=== PATIENT | male | born 1950 | race Caucasian/White ===

== ENCOUNTER 2016-11-17 07:38 | Day surgery (SDC) | payer OTHER, MEDICARE ==
[2016-11-16 08:24] VITALS: BMI 27.8
[~2016-11-17 07:38] MED LIST: LACTATED RINGERS 1,000 ML IV SCH; LIDOCAINE 1% 20 ML VIAL (10MG/ML) FOR IV START INTRADERMA PRN
[2016-11-17 07:47] VITALS: TEMP 98
[2016-11-17] MEDS ORDERED: LACTATED RINGERS 1,000 ML IV ONE (07:56)
[2016-11-17] MEDS ORDERED: PROPOFOL 10 MG/ML 20 ML VIAL IV ONE (08:49)
--- NOTE | 2016-11-17 09:19 | P.PCN ---
Date of Procedure: 11/17/16 Preoperative Diagnosis: Postoperative Diagnosis: Procedure(s) Performed: Procedure: Colonoscopy and biopsy. Preoperative diagnosis: History of polyps and history of ulcerative colitis. Postoperative diagnosis: 1. Numerous pseudopolyps in the distal sigmoid but no evidence of active colitis in that segment. 2. Mild diverticulosis with no evidence of acute diverticulitis or strictures. 3. No additional polyps or cancer seen. Preparation: HalfLytely prep. Sedation: Was provided by anesthesia. Brief clinical history: The patient is a 66-year-old male who has history of colitis since age 26. He has been on Lialda 1.2 grams twice a day. He is not having any diarrhea, abdominal pain or bleeding. His last colonoscopy was in . Procedure: With the patient on his left lateral decubitus position and after informed consent and adequate sedation, the perianal area was inspected and it did not show any fissures or fistulas. There were no masses felt on digital rectal examination. The Olympus CFQ 160L video colonoscope was then inserted in the rectum in the usual fashion and advanced to the cecum. There was mild diverticulosis in the sigmoid and occasional diverticular orifice around the hepatic flexure with no evidence of acute diverticulitis or strictures. Proximal to 40 cm from the anal canal, the mucosa appeared healthy, with no edema, erythema, friability, ulceration, exudation or spontaneous bleeding. No polyps were seen in the cecum where he had previously been noted to have a benign-appearing polyp. Between 40 cm and the rectosigmoid junction the mucosa appeared normal except that there were numerous small pseudopolyps. The rectum did not have any pseudopolyps and did not show any obvious abnormalities. I obtained multiple biopsies in the sigmoid, then the endoscope was retroflexed in the rectum before it was withdrawn. The patient tolerated the procedure well Plan: The patient was reassured. Will await biopsy results and continue with Lialda. Because of the long duration of his colitis, since he was 26 years old , I am recommending surveillance colonoscopy in 2 years. He will follow up with you as planned and I would be happy to see in the office if he has any problems. Implants: Indications for Procedure: Operative Findings: Description of Procedure:
[2016-11-17 09:34] VITALS: BP 137/86; PULSE 49; RESP 18
== END 2016-11-17 10:26 | disposition home or self-care (01) ==
LOC: ORWHC2ENDO 07:38
DX: K52.9 Noninfective gastroenteritis and colitis, unspecified (principal); Z86.010 Personal history of colon polyps; Z87.19 Personal history of other diseases of the digestive system; I25.10 Atherosclerotic heart disease of native coronary artery without angina pectoris; I10 Essential (primary) hypertension; Z95.5 Presence of coronary angioplasty implant and graft; G47.33 Obstructive sleep apnea (adult) (pediatric); Z99.89 Dependence on other enabling machines and devices; Z87.891 Personal history of nicotine dependence; Z79.82 Long term (current) use of aspirin; Z79.899 Other long term (current) drug therapy; Z88.1 Allergy status to other antibiotic agents; Z88.5 Allergy status to narcotic agent; Z88.2 Allergy status to sulfonamides
CPT/HCPCS: 88305; 45380; J2704

== ENCOUNTER 2018-11-27 23:52 | Observation (INO) | payer MEDICARE ==
[2018-11-28] MEDS ORDERED: ASPIRIN 81 MG PO STA (00:08)
--- NOTE | 2018-11-28 00:35 | ED ---
General Adult HPI - General Source: patient, RN notes reviewed, old records reviewed Mode of arrival: ambulatory Limitations: no limitations <Edgar Mcdonnell - Last Filed: 11/28/18 02:47> <Imelda Singh - Last Filed: 11/29/18 06:03> - General Chief complaint: Chest Pain Stated complaint: Chest Pain Time Seen by Provider: 11/28/18 00:08 - History of Present Illness Initial comments: 68-year-old male patient presents to ED for chief complaint of chest pain. Patient does have a history of prior [place] with stent placement. Patient reports that approximately 8 PM he had a transient episode of substernal burning and pressure. Patient reports that that approximately 30 minutes prior to arrival he had a episode of substernal burning chest pain which woke him up out of sleep. This prompted him to come to ER. Patient has any sustained chest pain. Patient reports that the pain only lasted approximate 5 seconds. Is currently asymptomatic right now. Denies any other complaints at this time. Denies any a ssociated diaphoresis nausea vomiting or diarrhea. Systemic: Pt denies fatigue, fever/chills, rash. Pt denies weakness, night sweats, weight loss. Neuro: Pt denies headache, visual disturbances, syncope or pre-syncope. HEENT: Pt denies ocular discharge or irritation, otalgia, rhinorrhea, pharyngit is or notable lymphadenopathy. Cardiopulmonary: Pt denies SOB, heart palpitations, dyspnea on exertion. Abdominal/GI: Pt denies abdominal pain, n/v/d. : Pt denies dysuria, burning w/ urination, frequency/urgency. Denies new onset urinary or bowel incontinence. MSK: Pt denies myalgia, loss of strength or function in extremities. Neuro: Pt denies new onset weakness, paresthesias. (Edgar Mcdonnell) - Related Data Home Medications Medication Instructions Recorded Confirmed Aspirin 162 mg PO DAILY 08/03/14 11/28/18 Lisinopril [Zestril] 20 mg PO QAM 08/03/14 11/28/18 Mesalamine [Lialda] 2.4 gm PO QAM 08/03/14 11/28/18 Pravastatin Sodium [Pravachol] 20 mg PO QAM 08/03/14 11/28/18 Cholecalciferol [Vitamin D3] 1,000 unit PO DAILY 11/16/16 11/28/18 Allergies Allergy/AdvReac Type Severity Reaction Status Date / Time Sulfa (Sulfonamide Allergy Unknown Rash/Hives Verified 11/28/18 07:49 Antibiotics) doxycycline Allergy Unknown Verified 11/28/18 07:49 hydrocodone [From [facility]] Allergy Hallucinati Verified 11/28/18 07:49 ons Review of Systems ROS Other: All systems not noted in ROS Statement are negative. <Edgar Mcdonnell - Last Filed: 11/28/18 02:47> ROS Other: All systems not noted in ROS Statement are negative. <Imelda Singh - Last Filed: 11/29/18 06:03> ROS Statement: Those systems with pertinent positive or pertinent negative responses have been documented in the HPI. Past Medical History Past Medical History: Hyperlipidemia, Hypertension, Myocardial Infarction ([place]), Sleep Apnea/CPAP/BIPAP Additional Past Medical History / Comment(s): DOES NOT USE HIS C-PAP, ULCERATIVE COLITIS. Last Myocardial Infarction Date:: 02/08/2007 History of Any Multi-Drug Resistant Organisms: None Reported Past Surgical History: Cardiac Ablation, Heart Catheterization With Stent, Orthopedic Surgery Additional Past Surgical History / Comment(s): REMOVAL BONES SPURS/LEFT SHOULD ER. rt shoulder rotator cuff Past Anesthesia/Blood Transfusion Reactions: Previous Problems w/ Anesthesia, Motion Sickness Additional Past Anesthesia/Blood Transfusion Reaction / Comment(s): PROBLEMS WITH BP DROPPING WITH ANESTHESIA. ACCORDING TO RECOVERY ROOM STAFF, HE TRIED TO GET OFF CART AND PULL OUT IV. Date of Last Stent Placement:: 02/09/2007 Past Psychological History: No Psychological Hx Reported Smoking Status: Never smoker Past Alcohol Use History: None Reported Past Drug Use History: None Reported - Past Family History Mother Family Medical History: No Reported History <Edgar Mcdonnell - Last Filed: 11/28/18 02:47> General Exam Limitations: no limitations <Edgar Mcdonnell - Last Filed: 11/28/18 02:47> - General Exam Comments Initial Comments: Constitutional: NAD, AOX3, Pt has pleasant affect. HEENT: NC/AT, trachea midline, neck supple, no lymphadenopathy. Posterior pharynx non erythematous, without exudates. External ears appear normal, without discharge. Mucous membranes moist. Eyes PERRLA, EOM intact. There is no scleral icterus. No pallor noted. Cardiopulmonary: RRR, no murmurs, rubs or gallops, no JVD noted. Lungs CTAB in anterior and posterior ma. No peripheral edema. Abdominal exam: Abdomen soft and non-distended. Abdomen non-tender to palpation in all 4 quadrants. Bowel sounds active in LLQ. No hepatosplenomegaly. No ecchymosis Neuro: CN II-XII grossly intact. No nuchal rigidity. No raccon eyes, no allison sign, no hemotympanum. No cervical spinal tenderness. MSK: No posterior calf tenderness bilaterally, homans sign negative bilaterally. Posterior tibialis and radial pulse +2 bilaterally. Sensation intact in upper and lower extremities. Full active ROM in upper and lower extremities, 5/5 stregnth. (Edgar Mcdonnell) Course Vital Signs 11/27/18 11/28/18 11/28/18 23:57 00:02 00:30 Temperature 98.0 F Pulse Rate 60 61 Pulse Rate [ 54 L Pulse Oximetery ] Respiratory 16 Rate Blood Pressure 148/82 139/85 O2 Sat by Pulse 98 Oximetry 11/28/18 11/28/18 11/28/18 01:00 01:30 02:00 Temperature Pulse Rate 52 L 50 L 48 L Pulse Rate [ Pulse Oximetery ] Respiratory Rate Blood Pressure 137/88 133/85 125/73 O2 Sat by Pulse Oximetry 11/28/18 11/28/18 11/28/18 02:30 03:00 03:30 Temperature Pulse Rate 50 L 52 L 48 L Pulse Rate [ Pulse Oximetery ] Respiratory Rate Blood Pressure 122/77 119/74 114/74 O2 Sat by Pulse Oximetry Medical Decision Making - Lab Data Result diagrams: 11/28/18 00:45 11/28/18 00:45 - EKG Data -: EKG Interpreted by Me (and Dr. Singh) <Edgar Mcdonnell - Last Filed: 11/28/18 02:47> - Lab Data Result diagrams: 11/28/18 05:54 11/28/18 05:54 <Imelda Singh - Last Filed: 11/29/18 06:03> - Medical Decision Making 68-year-old male patient presents to ED for chief complaint of chest pain. P max does have a history of prior [place] with stent placement. Patient reports that approximately 8 PM he had a transient episode of substernal burning and pressure. Patient reports that that approximately 30 minutes prior to arrival he had a episode of substernal burning chest pain which woke him up out of sleep. This prompted him to come to ER. Patient has any sustained chest pain. Patient reports that the pain only lasted approximate 5 seconds. Is currently asymptomatic right now. Denies any other complaints at this time. Denies any associated diaphoresis nausea vomiting or diarrhea. Patient also in stable, afebrile. Physical exam does not display acute pathology. Laboratory inve stigations revealed nonpassive CBC CMP. Coagulations studies within normal limits. D-dimer negative. Troponin negative. BNP 27. Chest x-ray revealed no acute process. EKG not concerning for acute pathology. Pt continues to remain asymptomatic. Patient leaving for serial troponins and cardiology consultation. Case discussed with Dr. Singh. (Edgar Mcdonnell) Presents on evaluated the patient agreeable with plan for admission for cardiac evaluation. Patient care was discussed with Dr. Bruno who agrees with plan. (Imelda Singh) - Lab Data Lab Results 11/28/18 11/28/18 11/28/18 Range/Units 00:45 00:45 00:45 WBC 5.9 (3.8-10.6) k/uL RBC 4.98 (4.30-5.90) m/uL Hgb 15.5 (13.0-17.5) gm/dL Hct 45.8 (39.0-53.0) % MCV 92.0 (80.0-100.0) fL MCH 31.2 (25.0-35.0) pg MCHC 33.8 (31.0-37.0) g/dL RDW 12.9 (11.5-15.5) % Plt Count 184 (150-450) k/uL Neutrophils % 58 % Lymphocytes % 27 % Monocytes % 9 % Eosinophils % 3 % Basophils % 1 % Neutrophils # 3.4 (1.3-7.7) k/uL Lymphocytes # 1.6 (1.0-4.8) k/uL Monocytes # 0.5 (0-1.0) k/uL Eosinophils # 0.2 (0-0.7) k/uL Basophils # 0.1 (0-0.2) k/uL PT 9.5 (9.0-12.0) sec INR 0.9 (<1.2) APTT 18.6 L (22.0-30.0) sec D-Dimer 0.30 (<0.60) mg/L FEU Sodium 140 (137-145) mmol/L Potassium 4.2 (3.5-5.1) mmol/L Chloride 107 (98-107) mmol/L Carbon Dioxide 20 L (22-30) mmol/L Anion Gap 13 mmol/L BUN 28 H (9-20) mg/dL Creatinine 1.11 (0.66-1.25) mg/dL Est GFR (CKD-EPI)AfAm 79 (>60 ml/min/1.73 sqM) Est GFR (CKD-EPI)NonAf 69 (>60 ml/min/1.73 sqM) Glucose 114 H (74-99) mg/dL Calcium 9.4 (8.4-10.2) mg/dL Magnesium 2.1 (1.6-2.3) mg/dL Total Bilirubin 0.6 (0.2-1.3) mg/dL AST 20 (17-59) U/L ALT 22 (21-72) U/L Alkaline Phosphatase 78 (38-126) U/L Troponin I (0.000-0.034) ng/mL NT-Pro-B Natriuret Pep pg/mL Total Protein 7.2 (6.3-8.2) g/dL Albumin 4.6 (3.5-5.0) g/dL 11/28/18 11/28/18 Range/Units 00:45 00:45 WBC (3.8-10.6) k/uL RBC (4.30-5.90) m/uL Hgb (13.0-17.5) gm/dL Hct (39.0-53.0) % MCV (80.0-100.0) fL MCH (25.0-35.0) pg MCHC (31.0-37.0) g/dL RDW (11.5-15.5) % Plt Count (150-450) k/uL Neutrophils % % Lymphocytes % % Monocytes % % Eosinophils % % Basophils % % Neutrophils # (1.3-7.7) k/uL Lymphocytes # (1.0-4.8) k/uL Monocytes # (0-1.0) k/uL Eosinophils # (0-0.7) k/uL Basophils # (0-0.2) k/uL PT (9.0-12.0) sec INR (<1.2) APTT (22.0-30.0) sec D-Dimer (<0.60) mg/L FEU Sodium (137-145) mmol/L Potassium (3.5-5.1) mmol/L Chloride (98-107) mmol/L Carbon Dioxide (22-30) mmol/L Anion Gap mmol/L BUN (9-20) mg/dL Creatinine (0.66-1.25) mg/dL Est GFR (CKD-EPI)AfAm (>60 ml/min/1.73 sqM) Est GFR (CKD-EPI)NonAf (>60 ml/min/1.73 sqM) Glucose (74-99) mg/dL Calcium (8.4-10.2) mg/dL Magnesium (1.6-2.3) mg/dL Total Bilirubin (0.2-1.3) mg/dL AST (17-59) U/L ALT (21-72) U/L Alkaline Phosphatase (38-126) U/L Troponin I <0.012 (0.000-0.034) ng/mL NT-Pro-B Natriuret Pep 27 pg/mL Total Protein (6.3-8.2) g/dL Albumin (3.5-5.0) g/dL - EKG Data EKG Comments: Ventricular rate 59, LA interval 146, QRS 94, QT/QTC 406/41. Sinus bradycardia, left axis deviation, incomplete right bundle-branch block. Abnormal EKG. (Edgar Mcdonnell) Disposition Is patient prescribed a controlled substance at d/c from ED?: No <Edgar Mcdonnell - Last Filed: 11/28/18 02:47> <Imelda Singh - Last Filed: 11/29/18 06:03> Clinical Impression: Chest pain Disposition: ADMITTED IP TO THIS [facility] Condition: Serious
[2018-11-28 01:08] LABS: Basophils # (A) 0.1 k/uL (0-0.2); Basophils % (A) 1 %; Eosinophils # (A) 0.2 k/uL (0-0.7); Eosinophils % (A) 3 %; HCT 45.8 % (39.0-53.0); HGB 15.5 gm/dL (13.0-17.5); Lymphocytes # (A) 1.6 k/uL (1.0-4.8); Lymphocytes % (A) 27 %; MCH 31.2 pg (25.0-35.0); MCHC 33.8 g/dL (31.0-37.0); Mean Platelet Volume 7.4; Monocytes # (A) 0.5 k/uL (0-1.0); Monocytes % (A) 9 %; Neutrophils # (A) 3.4 k/uL (1.3-7.7); Neutrophils % (A) 58 %; Platelet Count 184 k/uL (150-450); RBC 4.98 m/uL (4.30-5.90); RDW 12.9 % (11.5-15.5); WBC 5.9 k/uL (3.8-10.6)
[2018-11-28 01:24] LABS: Albumin 4.6 g/dL (3.5-5.0); Calcium 9.4 mg/dL (8.4-10.2); Magnesium 2.1 mg/dL (1.6-2.3); Potassium 4.2 mmol/L (3.5-5.1); Total Bilirubin 0.6 mg/dL (0.2-1.3); Total Protein 7.2 g/dL (6.3-8.2)
[2018-11-28 01:27] LABS: D-Dimer 0.3 mg/L FEU (<0.60); INR 0.9 (<1.2); Prothrombin Time 9.5 sec (9.0-12.0)
[2018-11-28 01:44] LABS: Partial Thromboplastin Time 18.6 sec (22.0-30.0)
--- NOTE | 2018-11-28 02:13 | XR ---
INDICATION: Chest pain COMPARISON: None FINDINGS: PA and lateral views of the chest are submitted for interpretation. There is no airspace consolidation, pleural effusion, or pneumothorax. Heart size and pulmonary vascularity are normal. There are degenerative changes in the thoracic spine without evidence of acute osseous abnormality. IMPRESSION: No acute cardiopulmonary disease.
[2018-11-28] MEDS ORDERED: NITROGLYCERIN SL TABS 0.4 MG TAB SUBLINGUAL PRN ×2 (02:44→14:03)
[2018-11-28] MEDS ORDERED: PRAVASTATIN SODIUM 20 MG TAB PO SCH (09:00)
[2018-11-28 09:11] VITALS: TEMP 97.7
[2018-11-28 09:49] LABS: Basophils % (A) 1 %; Eosinophils # (A) 0.2 k/uL (0-0.7); Eosinophils % (A) 3 %; HCT 44.6 % (39.0-53.0); HGB 14.5 gm/dL (13.0-17.5); Lymphocytes # (A) 1.6 k/uL (1.0-4.8); Lymphocytes % (A) 32 %; MCH 30.5 pg (25.0-35.0); MCHC 32.5 g/dL (31.0-37.0); MCV 93.9 fL (80.0-100.0); Mean Platelet Volume 7.6; Monocytes # (A) 0.4 k/uL (0-1.0); Monocytes % (A) 9 %; Neutrophils # (A) 2.7 k/uL (1.3-7.7); Neutrophils % (A) 52 %; Platelet Count 207 k/uL (150-450); RBC 4.75 m/uL (4.30-5.90); RDW 12.9 % (11.5-15.5); WBC 5.1 k/uL (3.8-10.6)
[2018-11-28 10:09] LABS: Calcium 9.1 mg/dL (8.4-10.2); Potassium 4.8 mmol/L (3.5-5.1); Total Bilirubin 0.6 mg/dL (0.2-1.3); Total Protein 6.2 g/dL (6.3-8.2)
[2018-11-28 10:10] LABS: Cholesterol 166 mg/dL (<200); HDL Cholesterol 48 mg/dL (40-60); LDL Cholesterol,Calculated 84 mg/dL (0-99); Triglycerides 168 mg/dL (<150)
[2018-11-28] MEDS ORDERED: ALPRAZolam 0.25 MG TAB PO PRN (10:11)
[2018-11-28] MEDS ORDERED: SODIUM CHLORIDE 0.9% 1,000 ML in EMPTY BAG 1 BAG IV ONE (10:11)
[2018-11-28] MEDS ORDERED: ALPRAZolam 0.5 MG TAB PO PRN (10:11)
--- NOTE | 2018-11-28 10:29 | P.CRDCN ---
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 He follows in the office with Dr. Jason. We have been asked to see him in consultation secondary to chest discomfort. He states last evening while sitting in his chair watching television he noticed a burning sensation in the chest in the midsternal region. This lasted around 15 minutes and ultimately subsided on its own. No specific aggravating or alleviating factors. There was no associated symptoms or radiation. He went to bed, woke up at 2300 with similar pain. He states this discomfort is similar to how he felt in 2006 when he suffered a heart attack. For this reason decided to come to ED. He did have intermittent episodes through the night of similar type b urning discomfort. EKG reveals sinus mechanism, heart rate is 59, left axis deviation and incomple te right bundle branch block pattern. No acute ST or T wave abnormalities noted. Chest x-ray is negative for an acute cardiopulmonary process. Laboratory data reviewed, WBC 5.1, hemoglobin 14.5, platelets 207, d-dimer 0.3, sodium 140, potassium 4.8, creatinine 1.22 with a GFR of 61, magnesium 2.1, cardiac enzymes negative 2, and pro-BNP 27, LDL 84. Current cardiac medications include aspirin 162 mg daily, lisinopril 20 mg daily and pravastatin 20 mg daily. The patient has had intolerance to other types of statins in the past. Most recent echocardiogram obtained in the office 2014 reveals preserved LV systolic function with ejection fraction 60%, mild LVH, grade 1 diastolic dysfunction with impaired relaxation, mildly dilated left atrium, mild mitral regurgitation, mildly calcified aortic valve with mild aortic regurgitation, mild tricuspid regurgitation and pulmonary hypertension with an RVSP of 44 mmHg. Cardiac catheterization report from 2017 reviewed and reveals a 95-99% narrowing of the proximal LAD, mild disease noted in OM1 and 2, mild atherosclerotic irregularity noted in the mid RCA. At that time he had hypokinesia of the anterior apical gardner LV with an ejection fraction around 45-50%. At the time of my exam: CONSTITUTIONAL: Denies fever. Denies chills. EYES: Denies blurred vision. Denies vision changes. Denies eye pain. EARS, NOSE, MOUTH & THROAT: Denies headache. Denies sore throat. Denies ear pain. CARDIOVASCULAR: Denies chest pain. Denies shortness of breath. Denies orthopnea. Denies PND. Denies palpitations. RESPIRATORY: Denies cough. GASTROINTESTINAL: Denies abdominal pain. Denies diarrhea. Denies constipation. Denies nausea. Denies vomiting. MUSCULOSKELETAL: Denies myalgias. INTEGUMENTARY: Denies pruitis. Denies rash. NEUROLOGIC: Denies numbness. Denies tingling. Denies weakness. PSYCHIATRIC: Denies anxiety. Denies depression. ENDOCRINE: Denies fatigue. Denies weight change. Denies polydipsia. Denies polyurina. GENITOURINARY: Denies burning, hematuria or urgency with micturation. HEMATOLOGIC: Denies history of anemia. Denies bleeding. Blood pressure 128/70 46 afebrile maintaining oxygen saturation on nasal cannula GENERAL: This is a 68-year-old male in no apparent distress at the time of my examination. HEENT: Head is atraumatic, normocephalic. Pupils are equal, round. Sclerae anicteric. Conjunctivae are clear. Mucous membranes of the mouth are moist. Neck is supple. There is no jugular venous distention. No carotid bruit is heard. LUNGS: Clear to auscultation no wheezes, rales or rhonchi. No chest wall tenderness is noted on palpation or with deep breathing. HEART: Regular rate and rhythm without murmurs, rubs or gallops. S1 and S2 heard. ABDOMEN: Soft, nontender. Bowel sounds are heard. No organomegaly noted. EXTREMITIES: No evidence of peripheral edema and no calf tenderness noted. VASCULAR: Radial and dorsalis pedis pulses palpated, no evidence of clubbing. NEUROLOGIC: Patient is awake, alert and oriented x3. ASSESSMENT Unstable angina History of coronary artery disease status post stent placement to the proximal LAD 2007 in the setting of an acute myocardial infarction Hypertension Dyslipidemia PLAN Recommend proceeding with cardiac catheterization to assess for progression of coronary artery disease. I have discussed the risks, benefits and alternative therapies for the above-mentioned procedure and for both sedation/analgesia as well as necessary blood product administration, if indicated, as they pertain to this patient. The patient has indicated understanding and acceptance of the risks and procedures discussed. Questions have been answered appropriately to the patient and his . He is agreeable to move forward with the above-stated procedure. Dr. Metz performed his previous stent placement and will do a left heart catheterization this afternoon. Echocardiogram is pending obtained and will be reviewed prior to the procedure. Resume lisinopril as previously ordered. Apply nitropaste. Further recommendations to follow based upon clinical course. Thank you kindly for this consultation. Nurse Practitioner note has been reviewed, I agree with a documented findings and plan of care. Patient was seen and examined. Past Medical History Past Medical History: Hyperlipidemia, Hypertension, Myocardial Infarction ([place]), Sleep Apnea/CPAP/BIPAP Additional Past Medical History / Comment(s): DOES NOT USE HIS C-PAP, ULCERATIVE COLITIS. Last Myocardial Infarction Date:: 02/08/2007 History of Any Multi-Drug Resistant Organisms: None Reported Past Surgical History: Cardiac Ablation, Heart Catheterization With Stent, Orthopedic Surgery Additional Past Surgical History / Comment(s): REMOVAL BONES SPURS/LEFT NATANAEL ULDER. rt shoulder rotator cuff, last stress test 02/2018 Past Anesthesia/Blood Transfusion Reactions: Previous Problems w/ Anesthesia, Motion Sickness Additional Past Anesthesia/Blood Transfusion Reaction / Comment(s): PROBLEMS WITH BP DROPPING WITH ANESTHESIA. ACCORDING TO RECOVERY ROOM STAFF, HE TRIED TO GET OFF CART AND PULL OUT IV. Date of Last Stent Placement:: 02/09/2007 Past Psychological History: No Psychological Hx Reported Smoking Status: Never smoker Past Alcohol Use History: None Reported Additional Past Alcohol Use History / Comment(s): USED TO SMOKE A PIPE- last used 1969' Past Drug Use History: None Reported - Past Family History Mother Family Medical History: No Reported History Medications and Allergies Home Medications Medication Instructions Recorded Confirmed Type Aspirin 162 mg PO DAILY 08/03/14 11/28/18 History Lisinopril [Zestril] 20 mg PO QAM 08/03/14 11/28/18 History Mesalamine [Lialda] 2.4 gm PO QAM 08/03/14 11/28/18 History Pravastatin Sodium [Pravachol] 20 mg PO QAM 08/03/14 11/28/18 History Cholecalciferol [Vitamin D3] 1,000 unit PO DAILY 11/16/16 11/28/18 History Allergies Allergy/AdvReac Type Severity Reaction Status Date / Time Sulfa (Sulfonamide Allergy Unknown Rash/Hives Verified 11/28/18 07:49 Antibiotics) acetaminophen [From [facility]] Allergy Hallucinati Verified 11/28/18 07:49 ons doxycycline Allergy Unknown Verified 11/28/18 07:49 hydrocodone [From Dille] Allergy Hallucinati Verified 11/28/18 07:49 ons Physical Exam Vitals: Vital Signs Temp Pulse Pulse Resp BP Pulse Ox 11/28/18 03:30 48 L 114/74 11/28/18 03:00 52 L 119/74 11/28/18 02:30 50 L 122/77 11/28/18 02:00 48 L 125/73 11/28/18 01:30 50 L 133/85 11/28/18 01:00 52 L 137/88 11/28/18 00:30 61 139/85 11/28/18 00:02 54 L 11/27/18 23:57 98.0 F 60 16 148/82 98 Intake and Output 11/27/18 11/28/18 11/28/18 22:59 06:59 14:59 Other: Weight 92.986 kg Results 11/28/18 05:54 11/28/18 05:54 Cardiac Enzymes 11/28/18 11/28/18 11/28/18 Range/Units 00:45 00:45 05:54 AST 20 (17-59) U/L Troponin I <0.012 <0.012 (0.000-0.034) ng/mL Coagulation 11/28/18 Range/Units 00:45 PT 9.5 (9.0-12.0) sec APTT 18.6 L (22.0-30.0) sec CBC 11/28/18 Range/Units 00:45 WBC 5.9 (3.8-10.6) k/uL RBC 4.98 (4.30-5.90) m/uL Hgb 15.5 (13.0-17.5) gm/dL Hct 45.8 (39.0-53.0) % Plt Count 184 (150-450) k/uL Comprehensive Metabolic Panel 11/28/18 Range/Units 00:45 Sodium 140 (137-145) mmol/L Potassium 4.2 (3.5-5.1) mmol/L Chloride 107 (98-107) mmol/L Carbon Dioxide 20 L (22-30) mmol/L BUN 28 H (9-20) mg/dL Creatinine 1.11 (0.66-1.25) mg/dL Glucose 114 H (74-99) mg/dL Calcium 9.4 (8.4-10.2) mg/dL AST 20 (17-59) U/L ALT 22 (21-72) U/L Alkaline Phosphatase 78 (38-126) U/L Total Protein 7.2 (6.3-8.2) g/dL Albumin 4.6 (3.5-5.0) g/dL Current Medications Generic Name Dose Route Start Last Admin Trade Name Freq PRN Reason Stop Dose Admin Aspirin 325 mg 11/29/18 09:00 Aspirin PO DAILY [facility] Balsalazide 2,250 mg 11/28/18 09:00 Colazal PO TID [facility] Cholecalciferol 1,000 unit 11/28/18 09:00 Vitamin D3 (25 Mcg = 1000 Iu) PO DAILY [facility] Nitroglycerin 0.4 mg 11/28/18 02:44 Nitrostat SUBLINGUAL Q5M PRN Chest Pain Pantoprazole Sodium 40 mg 11/29/18 07:30 Protonix PO AC-BRKFST [facility] Pravastatin Sodium 20 mg 11/28/18 09:00 Pravachol PO QAM [facility] Intake and Output 11/27/18 11/28/18 11/28/18 22:59 06:59 14:59 Other: Weight 92.986 kg 11/28/18 00:45 11/28/18 00:45
--- NOTE | 2018-11-28 10:39 | ECHOF ---
Referral Reason:chest pain MEASUREMENTS -------- HEIGHT: 177.8 cm WEIGHT: 93.0 kg BP: 114/74 RVIDd: 2.4 cm (< 3.3) IVSd: 1.3 cm (0.6 - 1.1) LVIDd: 4.1 cm (3.9 - 5.3) LVPWd: 1.2 cm (0.6 - 1.1) IVSs: 1.5 cm LVIDs: 2.8 cm LVPWs: 1.7 cm LAESV Index (A-L): 15.10 ml/m Ao Diam: 3.1 cm (2.0 - 3.7) AV Cusp: 1.7 cm (1.5 - 2.6) LA Diam: 4.0 cm (2.7 - 3.8) MV EXCURSION: 12.495 mm (> 18.000) MV EF SLOPE: 68 mm/s (70 - 150) EPSS: 0.7 cm MV E Ryder: 0.90 m/s MV DecT: 265 ms MV A Ryder: 1.08 m/s MV E/A Ratio: 0.84 AR PHT: 573 ms RAP: 5.00 mmHg RVSP: 21.66 mmHg FINDINGS -------- Sinus rhythm. This was a technically good study. The left ventricular size is normal. There is mild concentric left ventricular hypertrophy. Overa ll left ventricular systolic function is normal with, an EF between 55 - 60 %. Normal LAP Grade 1 D iastolic Dysfunction The right ventricle is normal in size. Normal LA size by volume 22+/-6 ml/m2. The right atrial size is normal. Aortic valve is trileaflet and is mildly thickened. There is mild aortic regurgitation. The mitral valve is normal. Mild mitral regurgitation is present. The tricuspid valve appears structurally normal. Mild tricuspid regurgitation present. Right vent ricular systolic pressure is normal at < 35 mmHg. There is no pulmonic regurgitation present. The aortic root size is normal. Normal inferior vena cava with normal inspiratory collapse consistent with estimated right atrial pre ssure of 5 mmHg. There is no pericardial effusion. CONCLUSIONS -------- 1. Sinus rhythm. 2. This was a technically good study. 3. The left ventricular size is normal. 4. There is mild concentric left ventricular hypertrophy. 5. Overall left ventricular systolic function is normal with, an EF between 55 - 60 %. 6. Normal LAP Grade 1 Diastolic Dysfunction 7. The right ventricle is normal in size. 8. Normal LA size by volume 22+/-6 ml/m2. 9. The right atrial size is normal. 10. Aortic valve is trileaflet and is mildly thickened. 11. There is mild aortic regurgitation. 12. The mitral valve is normal. 13. Mild mitral regurgitation is present. 14. The tricuspid valve appears structurally normal. 15. Mild tricuspid regurgitation present. 16. Right ventricular systolic pressure is normal at < 35 mmHg. 17. There is no pulmonic regurgitation present. 18. The aortic root size is normal. 19. Normal inferior vena cava with normal inspiratory collapse consistent with estimated right atrial pressure of 5 mmHg. 20. There is no pericardial effusion. MOTION STUDY ANALYST: Tammy Figueroa RDCS
[2018-11-28] MEDS ORDERED: NITROGLYCERIN OINT 1 INCH/GM PACKET TOPICAL SCH (11:00)
--- NOTE | 2018-11-28 11:09 | P.HPIM ---
History of Present Illness H&P Date: 11/28/18 This is a 68-year-old male patient who presented to the hospital with complaints of chest pain. Patient reports the chest pain came on abruptly while he was sitting in a chair patient felt that it was a burning sensation in the middle of his chest. Patient denies any associated nausea vomiting or shortness of breath. Patient has past medical history of non-ST elevated myocardial infarction 2017 with stent placement to the proximal LAD. Additional medical history includes hypertension, dyslipidemia, obstructive sleep apnea. Patient also has a past medical history of an ablation in 2010. Chest x-ray completed showing no acute cardio pulmonary disease. Troponins negative 3. EKG complet ed showing sinus bradycardia. Cardiology services have been consulted. At this time patient is still complaining of occasional chest pain. Patient denies any shortness of breath. Patient denies nausea vomiting or diarrhea. Patient denies any urinary burning or frequency. Review of Systems Please refer to HPI otherwise unremarkable Past Medical History Past Medical History: Hyperlipidemia, Hypertension, Myocardial Infarction ([place]), Sleep Apnea/CPAP/BIPAP Additional Past Medical History / Comment(s): DOES NOT USE HIS C-PAP, ULCERATIVE COLITIS. Last Myocardial Infarction Date:: 02/08/2007 History of Any Multi-Drug Resistant Organisms: None Reported Past Surgical History: Cardiac Ablation, Heart Catheterization With Stent, Orthopedic Surgery Additional Past Surgical History / Comment(s): REMOVAL BONES SPURS/LEFT SHOULDER. rt shoulder rotator cuff, last stress test 02/2018 Past Anesthesia/Blood Transfusion Reactions: Previous Problems w/ Anesthesia, Motion Sickness Additional Past Anesthesia/Blood Transfusion Reaction / Comment(s): PROBLEMS WITH BP DROPPING WITH ANESTHESIA. ACCORDING TO RECOVERY ROOM STAFF, HE TRIED TO GET OFF CART AND PULL OUT IV. Date of Last Stent Placement:: 02/09/2007 Past Psychological History: No Psychological Hx Reported Smoking Status: Never smoker Past Alcohol Use History: None Reported Additional Past Alcohol Use History / Comment(s): USED TO SMOKE A PIPE- last used Past Drug Use History: None Reported - Past Family History Mother Family Medical History: No Reported History Medications and Allergies Home Medications Medication Instructions Recorded Confirmed Type Aspirin 162 mg PO DAILY 08/03/14 11/28/18 History Lisinopril [Zestril] 20 mg PO QAM 08/03/14 11/28/18 History Mesalamine [Lialda] 2.4 gm PO QAM 08/03/14 11/28/18 History Pravastatin Sodium [Pravachol] 20 mg PO QAM 08/03/14 11/28/18 History Cholecalciferol [Vitamin D3] 1,000 unit PO DAILY 11/16/16 11/28/18 History Allergies Allergy/AdvReac Type Severity Reaction Status Date / Time Sulfa (Sulfonamide Allergy Unknown Rash/Hives Verified 11/28/18 07:49 Antibiotics) acetaminophen [From [place]] Allergy Hallucinati Verified 11/28/18 07:49 ons doxycycline Allergy Unknown Verified 11/28/18 07:49 hydrocodone [From [place]] Allergy Hallucinati Verified 11/28/18 07:49 ons Physical Exam Vitals: Vital Signs Temp Pulse Pulse Resp BP BP Pulse Ox 11/28/18 09:15 16 11/28/18 08:00 97.7 F 46 L 16 128/78 99 11/28/18 03:30 48 L 114/74 11/28/18 03:00 52 L 119/74 11/28/18 02:30 50 L 122/77 11/28/18 02:00 48 L 125/73 11/28/18 01:30 50 L 133/85 11/28/18 01:00 52 L 137/88 11/28/18 00:30 61 139/85 11/28/18 00:02 54 L 11/27/18 23:57 98.0 F 60 16 148/82 98 Intake and Output 11/27/18 11/28/18 11/28/18 22:59 06:59 14:59 Other: Voiding Method Toilet Weight 92.986 kg Head normocephalic Neck supple Lungs clear to auscultation bilaterally no wheezing or crackles Heart regular rate and rhythm S1-S2, no rub or gallop Abdomen is soft nontender nondistended positive bowel sounds no hepatosplenomegaly Extremities no edema Neuro alert and orientated to 3 Results CBC & Chem 7: 11/28/18 05:54 11/28/18 05:54 Labs: Abnormal Lab Results - Last 24 Hours (Table) 11/28/18 11/28/18 11/28/18 Range/Units 00:45 00:45 05:54 APTT 18.6 L (22.0-30.0) sec Carbon Dioxide 20 L (22-30) mmol/L BUN 28 H 26 H (9-20) mg/dL Glucose 114 H 109 H (74-99) mg/dL Total Protein 6.2 L (6.3-8.2) g/dL Triglycerides (<150) mg/dL 11/28/18 Range/Units 05:54 APTT (22.0-30.0) sec Carbon Dioxide (22-30) mmol/L BUN (9-20) mg/dL Glucose (74-99) mg/dL Total Protein (6.3-8.2) g/dL Triglycerides 168 H (<150) mg/dL Thrombosis Risk Factor Assmnt - Choose All That Apply Any of the Below Risk Factors Present?: No Other Risk Factors: Yes Each Risk Factor Represents 2 Points: Age 61-74 years Other congenital or acquired thrombophilia - If yes, enter type in comment: No Thrombosis Risk Factor Assessment Total Risk Factor Score: 2 Thrombosis Risk Factor Assessment Level: Low Risk Assessment and Plan Assessment: 1. Chest pain. EKG completed showing sinus bradycardia. Troponins negative 3. Chest x-ray completed showing negative for pulmonary process. Cardiology services have been consulted. Plans for cardiac catheterization today per [facility]. 2. History of previous coronary artery disease with stent placement of the LAD 2006 3. History of essential hypertension 4. History of hyperlipidemia 5. History of obstructive sleep apnea Time with Patient: Greater than 30 (Greater than 60% of the total time spent in counseling and coordination of care. I performed an examination of the patient and discussed their management with the Nurse Practitioner. I have reviewed the Nurse Practitioner's notes and agree with the documented findings and plan of care)
[2018-11-28] MEDS: CHOLECALCIFEROL 1,000 UNIT TAB PO SCH (11:56)
[2018-11-28] MEDS: BALSALAZIDE DISODIUM 750 MG CAPSULE PO SCH ×3 (11:57→21:30)
[2018-11-28] MEDS: LISINOPRIL 20 MG TAB PO SCH (11:57)
[2018-11-28] MEDS ORDERED: LIDOCAINE 1% INJ 10MG/ML (20 ML MDV) ONE (12:55)
[2018-11-28] MEDS ORDERED: VERAPAMIL 2.5 MG/ML 2 ML AMP ONE (12:56)
[2018-11-28] MEDS ORDERED: fentaNYL (PF) 50 MCG/ML 2 ML AMP ONE (12:56)
[2018-11-28] MEDS ORDERED: HEPARIN SODIUM 1,000 UN/ML (10ML VL) ONE (12:56)
[2018-11-28] MEDS ORDERED: SODIUM CHLORIDE 0.9% 1,000 ML IV ONE (13:01)
[2018-11-28] MEDS ORDERED: fentaNYL (PF) 50 MCG/ML 2 ML AMP IVP ONE (13:05)
[2018-11-28] MEDS ORDERED: LIDOCAINE 2% INJ 20 MG/ML SQ ONE (13:06)
[2018-11-28] MEDS ORDERED: MIDAZOLAM (PF) 2 MG/2 ML VIAL IVP ONE (13:07)
[2018-11-28] MEDS ORDERED: VERAPAMIL SYRINGE (5 MG/10 ML) INTRAARTER ONE (13:08)
[2018-11-28] MEDS: HEPARIN SODIUM 1,000 UN/ML (10ML VL) IV ONE ×2 (13:25→13:40)
[2018-11-28] MEDS ORDERED: ADENOSINE 90 MG in SODIUM CHLORIDE 0.9% 60 ML IVP ONE (13:29)
[2018-11-28] MEDS ORDERED: PRASUGREL 10 MG TAB ONE (13:37)
[2018-11-28] MEDS ORDERED: PRASUGREL 10 MG TAB PO ONE (13:40)
[2018-11-28] MEDS ORDERED: IOPAMIDOL-370 125ML BTL INJ ONE (13:41)
[2018-11-28] MEDS ORDERED: NITROGLYCERIN 1000MCG/10ML SYRINGE INTRACORON ONE (13:46)
[2018-11-28] MEDS ORDERED: IOPAMIDOL-370 100ML BTL INJ ONE (13:58)
[2018-11-28] MEDS ORDERED: ZOLPIDEM 5 MG TAB PO PRN (14:03)
[2018-11-28] MEDS ORDERED: ATROPINE SULFATE 0.1 MG/ML 10ML SYRINGE IV PRN (14:03)
[2018-11-28] MEDS ORDERED: MAG HYDROX/AL HYDROX/SIMETH 30 ML CUP PO PRN (14:03)
[2018-11-28] MEDS ORDERED: RX INFO: IV CONTRAST WAS GIVEN 1 EACH MISC MISCELLANE PRN (14:03)
[2018-11-28] MEDS ORDERED: SODIUM CHLORIDE 0.9% 1,000 ML IV SCH (14:15)
--- NOTE | 2018-11-28 15:05 | CC ---
CARDIAC CATHETERIZATION REPORT Mr. Villegas is a 68-year-old male with a known history of coronary artery disease, status post percutaneous revascularization of the LAD in 2006, who presented with symptoms of chest discomfort. His cardiac enzymes and EKG showed no acute changes. He was evaluated by Dr. Melody Gauthier and recommendation was made regarding cardiac catheterization. The procedures, risks, and complication were discussed with the patient who is in full understanding and agreement. PROCEDURE: Patient was brought to the laborer driver in a fasting semi-sedated state after receiving fentanyl and Benadryl and achieving moderate conscious sedated state. Using Xylocaine anesthesia and Seldinger technique, a 6-Congolese sheath was introduced in the right radial artery. Selective right and left coronary angiography were performed using 5- Congolese 3.5 bend right and left Edu catheter. Multiple views of the coronary artery including hemiaxial views were obtained. Following that, angioplasty and stenting was performed. Following that, a 5-Congolese tight pigtail catheter was introduced in the left ventricle and a 30 degree WELLS view of the left ventricle was obtained. Following that, catheter and sheath were removed. Hemostasis was obtained with deployment of a TR band. There was no immediate complication. Patient is returned to his room in stable condition. Of note, patient received intra-arterial verapamil [place] [address] [place] of intravenous heparin. His ACT was monitored. FINDINGS: LEFT MAIN: This is a large-sized vessel short size vessel bifurcating into left circumflex, left anterior descending artery. Left main coronary artery has no evidence of high-grade stenosis. LEFT ANTERIOR DESCENDING ARTERY: This is a large-sized vessel, reaching toward the apex with a wraparound apex segment. The stented segment in the proximal LAD is patent. There is about 20 30% plaque. It gives rise to a diagonal branch of moderate caliber. The diagonal branch has diffuse intimal disease proximally up to 60%-70%. The rest of the vessel has no high-grade stenosis. LEFT CIRCUMFLEX: This is a nondominant vessel giving rise to 3 obtuse marginal branch. The left circumflex prior to the obtuse marginal branch 1 has a 20% to 30% plaque. The first obtuse marginal branch has intimal disease of about 50%. The rest of the vessel has no high-grade stenosis. RIGHT CORONARY ARTERY: This is a dominant vessel, moderate in caliber, calcified. The proximal segment has a 50% stenosis. At the mid segment at the takeoff of the acute marginal branch, there is an eccentric 60%-70% lesion. The rest of the vessel has intimal disease without any evidence of high-grade stenosis. LEFT VENTRICULOGRAM: Left ventriculogram was performed in 30 degree WELLS view and revealed normal left ventricular size and systolic function. Ejection fraction is 60%. There was no significant mitral regurgitation. HEMODYNAMICS: There was no gradient across the aortic valve. The left ventricular end- diastolic pressure was 12 mmHg. CONCLUSION: 1. Patent stent of the LAD with mild to moderate disease. 2. Moderate disease in the first diagonal branch. 3. Mild to moderate disease in the first obtuse marginal branch. 4. Moderate significant disease in the mid right coronary artery in a calcified segment. RECOMMENDATION: In view of finding anatomy, I recommend proceeding with a fractional flow reserve evaluation of the mid right coronary artery and depending on that, further recommendation will be made. Those findings and recommendations were discussed with the patient and his family and in full understanding and agreement. MMODL / IJN: [id number] /
--- NOTE | 2018-11-28 15:08 | PTCA ---
PERCUTANEOUSTRANS CORORONARY ANGIOGRAPHY Mr. Villegas is a 68-year-old male with a known history of coronary artery disease who presented with symptoms of chest discomfort, underwent cardiac catheterization, was found to have borderline significant lesion in the mid right coronary artery. In view of that, recommendation regarding angioplasty and stenting. The procedures, risks and complication were discussed with the patient who is in full understanding and agreement. PROCEDURE: A 6-Kyrgyz FR4 guiding catheter introduced into the system after cannulating the right coronary ostium. A [employer] Doppler flow wire was advanced, positioned distally. Following that, fractional flow reserve was measured at 64%. At that point, a 2.25 x 12 mm Trek balloon was advanced, one inflation at 10 atmospheres was done. Following that, the balloon was removed and a 2.5 x 12 mm Xience Hayley stent was deployed and post-dilated at 16 atmospheres. After the last inflation, after appropriate wait, the balloon and the guidewire were withdrawn back in the guiding catheter. Images were obtained and repeated. Those images reveal stable successful stenting. At that point, the guiding catheter, the balloon and the guidewire were removed. Left ventriculogram was performed. Following that, catheter and sheath were removed. Hemostasis was obtained with deployment of a TR band. There was no immediate complication. Patient is returned to his room in stable condition. Of note, the patient received a total of 10,000 units of intravenous heparin throughout the procedure as well as intra- arterial verapamil. He had no chest discomfort or EKG changes with the inflation. RESULTS: Successful stenting of the mid right coronary artery with reduction of stenosis from 60%-70% to 0% with a pre-procedure fractional flow reserve of 64%. RECOMMENDATION: Patient be continued on aspirin, Effient and statin. The importance of dual antiplatelet treatment were discussed with the patient and his family who are in full understanding and agreement. Of note, the patient had slow flow in the acute marginal branch that was improving at the end the procedure. Duration of the procedure is 48 minutes. MMODL / IJN: [id number] / RAJENDRA
[2018-11-28] MEDS ORDERED: HYDROmorphone 0.5 MG/0.5 ML SYRINGE IVP PRN (17:39)
[2018-11-28] MEDS ORDERED: ACETAMINOPHEN TAB 500 MG TAB PO PRN (17:53)
--- NOTE | 2018-11-28 18:22 | CT ---
EXAMINATION TYPE: CT brain wo con DATE OF EXAM: 11/28/2018 COMPARISON: None HISTORY: Pt had a stent today and experienced loss of peripheral vision to LT side, resolved CT DLP: 1039.70 mGycm Automated exposure control for dose reduction was used. FINDINGS: There is mild cerebral atrophy. There is no mass effect nor midline shift. There is no sign of intrac ranial hemorrhage. The calvarium is intact. There is high attenuation in the venous sinuses consisten t with high hemoglobin level. IMPRESSION: NO ACUTE INTRACRANIAL ABNORMALITY.
[2018-11-28 23:36] VITALS: RESP 16
[2018-11-29 07:19] LABS: Basophils # (A) 0.1 k/uL (0-0.2); Basophils % (A) 1 %; Eosinophils # (A) 0.1 k/uL (0-0.7); Eosinophils % (A) 2 %; HCT 41.9 % (39.0-53.0); Lymphocytes # (A) 1.1 k/uL (1.0-4.8); Lymphocytes % (A) 20 %; MCH 30.7 pg (25.0-35.0); MCHC 33.3 g/dL (31.0-37.0); MCV 92.1 fL (80.0-100.0); Mean Platelet Volume 7.6; Monocytes # (A) 0.4 k/uL (0-1.0); Monocytes % (A) 7 %; Neutrophils # (A) 3.7 k/uL (1.3-7.7); Neutrophils % (A) 68 %; Platelet Count 192 k/uL (150-450); RBC 4.54 m/uL (4.30-5.90); RDW 14.8 % (11.5-15.5); WBC 5.4 k/uL (3.8-10.6)
[2018-11-29 07:22] LABS: Albumin 3.8 g/dL (3.5-5.0); Calcium 8.8 mg/dL (8.4-10.2); Potassium 4.7 mmol/L (3.5-5.1); Total Bilirubin 0.8 mg/dL (0.2-1.3); Total Protein 6.1 g/dL (6.3-8.2)
[2018-11-29] MEDS ORDERED: PANTOPRAZOLE 40 MG TABLET PO SCH (07:30)
[2018-11-29] MEDS: LISINOPRIL 20 MG TAB PO SCH (08:52)
[2018-11-29] MEDS: BALSALAZIDE DISODIUM 750 MG CAPSULE PO SCH (08:52)
[2018-11-29] MEDS: CHOLECALCIFEROL 1,000 UNIT TAB PO SCH (08:52)
[2018-11-29 08:55] VITALS: BP 126/76; PULSE 76
[2018-11-29] MEDS ORDERED: PRASUGREL 10 MG TAB PO SCH (09:00)
[2018-11-29] MEDS ORDERED: ASPIRIN 325 MG TAB PO SCH (09:00)
[2018-11-29] MEDS ORDERED: ASPIRIN 81 MG PO SCH (09:00)
--- NOTE | 2018-11-29 09:18 | PN ---
PROGRESS NOTE Mr. Villegas is a 68-year-old male with known history of coronary artery disease who presented with symptoms of chest discomfort, underwent cardiac catheterization, was found to have a lesion in the mid RCA, underwent fractional flow reserve measurement that was significantly abnormal, underwent stenting of that vessel. He is doing well this morning. He is denying any chest pain. His breathing has been stable. He denies any dizziness or palpitation. Yesterday, he had a transient episode of visual disturbance that resolved. A CT scan of the head was obtained that showed no abnormalities. He continued to be in sinus mechanism. He continues to be on aspirin once a day, Effient 10 mg daily, Lipitor 80 mg daily, lisinopril 20 mg daily. PHYSICAL EXAMINATION: Blood pressure 115/60 with the heart rate in the 60s. LUNGS: Clear. HEART: Regular rate and rhythm. S1, S2. No S3 with systolic murmur. No diastolic murmur. No rub. ABDOMEN: Soft, nontender. EXTREMITIES: No edema. Right radial pulse is intact. LAB DATA: Lab data revealed BUN and creatinine 15, 1.04, potassium 4.7, hemoglobin of 14. IMPRESSION: 1. Status post stenting of the RCA. 2. History of coronary artery disease with stenting of the LAD in 2006. 3. Hypertension. 4. Hyperlipidemia. RECOMMENDATION: From the cardiac standpoint, he is stable to be discharged home today and follow up as an outpatient with Dr. Jason in 1 week. MMODL / IJN: [id number] /
--- NOTE | 2018-11-29 13:05 | P.DS ---
Providers Date of admission: 11/28/18 03:47 Expected date of discharge: 11/29/18 Attending physician: Junior Bruno Consults: 11/28/18 02:44 Consult Physician Urgent Consulting Provider: Leonidas Jason Consult Reason/Comments: chest pain, acs rule out Do you want consulting provider notified?: Yes 11/28/18 14:03 Consult Physician Routine Consulting Provider: [facility] Consult Reason/Comments: Post Interventional patient Do you want consulting provider notified?: Already Contacted Primary care physician: Junior [facility] Course: Discharge diagnosis 1. Chest pain. EKG completed showing sinus bradycardia. Troponins negative 3. Chest x-ray completed showing negative for pulmonary process. Cardiology services have been consulted. Status post cardiac catheterization with patient receiving stent to the RCA. Patient has been cleared for discharge from cardiac standpoint. Patient will follow up with Dr. Jason outpatient. Patient will be discharged on Effient and Lipitor. 2. History of previous coronary artery disease with stent placement of the LAD 2006 3. History of essential hypertension 4. History of hyperlipidemia 5. History of obstructive sleep apnea 6. vision changes Post heart cath. Head CT completed showing no acute intracranial abnormality. Symptoms have resolved. Patient has been cleared by cardiology services Hospital course This is a 68-year-old male patient who presented to the hospital with complaints of chest pain. Patient reports the chest pain came on abruptly while he was sitting in a chair patient felt that it was a burning sensation in the middle of his chest. Patient denies any associated nausea vomiting or shortness of breath. Patient has past medical history of non-ST elevated myocardial infarction 2016 with stent placement to the proximal LAD. Additional medical history includes hypertension, dyslipidemia, obstructive sleep apnea. Patient also has a past medical history of an ablation in 2010. Chest x-ray completed showing no acute cardio pulmonary disease. Troponins negative 3. EKG completed showing sinus bradycardia. Cardiology services have been consulted. At this time patient is still complaining of occasional chest pain. Patient denies any shortness of breath. Patient denies nausea vomiting or diarrhea. Patient denies any urinary burning or frequency. On 11/29/2018 patient is alert and oriented 3. Patient received stent to the RCA yesterday. Post Patient did have temporary vision changes to his peripheral vision in his left eye. Head CT was completed showing no acute intracranial abnormality. Symptoms have completely resolved. Per patient symptoms lasted about 10 minutes. At this time patient reports he's been chest pain-free. Patient denies any shortness of breath. Patient denies nausea vomiting or diarrhea. Patient denies any urinary burning or frequency. Patient has been up ambulating. Patient denies headache, change in vision or any other neuro symptoms. Patient has been cleared for discharge from cardiology standpoint. Patient will follow up with Dr. Jason outpatient. Patient will be DC'd on Effient. I performed an examination of the patient and discussed their management with the Nurse Practitioner. I have reviewed the Nurse Practitioner's notes and agree with the documented findings and plan of care Patient Condition at Discharge: Stable Plan - Discharge Summary New Discharge Prescriptions: New Prasugrel [Effient] 10 mg PO DAILY #90 tab Atorvastatin [Lipitor] 80 mg PO HS #90 tab Nitroglycerin Sl Tabs [Nitrostat] 0.4 mg SUBLINGUAL Q5M PRN #25 tab PRN Reason: Chest Pain Aspirin 81 mg PO DAILY chew Continue Lisinopril [Zestril] 20 mg PO QAM Mesalamine [Lialda] 2.4 gm PO QAM Cholecalciferol [Vitamin D3 (25 Mcg = 1000 Iu)] 1,000 unit PO DAILY Discontinued Pravastatin Sodium [Pravachol] 20 mg PO QAM Aspirin 162 mg PO DAILY Discharge Medication List Lisinopril [Zestril] 20 mg PO QAM 08/03/14 [History] Mesalamine [Lialda] 2.4 gm PO QAM 08/03/14 [History] Cholecalciferol [Vitamin D3 (25 Mcg = 1000 Iu)] 1,000 unit PO DAILY 11/16/16 [History] Aspirin 81 mg PO DAILY chew 11/29/18 [Rx] Atorvastatin [Lipitor] 80 mg PO HS #90 tab 11/29/18 [Rx] Nitroglycerin Sl Tabs [Nitrostat] 0.4 mg SUBLINGUAL Q5M PRN #25 tab 11/29/18 [Rx] Prasugrel [Effient] 10 mg PO DAILY #90 tab 11/29/18 [Rx] Follow up Appointment(s)/Referral(s): Leonidas Jason MD [STAFF PHYSICIAN] - 12/07/18 9:00 am (With ARIANNA Magdaleno) Junior Bruno MD [Primary Care Provider] - 1-2 days Patient Instructions/Handouts: Heart Healthy Diet (DC), After Radial Heart Catheterization (GEN) Activity/Diet/Wound Care/Special Instructions: Pts 90 day supply of Effient is $120, pt agreeable to cost Discharge Disposition: HOME SELF-CARE
[2018-11-29 14:01] VITALS: BMI 29.7
[2018-11-29] MEDS ORDERED: ATORVASTATIN 80 MG TAB PO SCH (21:00)
== END 2018-11-29 14:40 | disposition home or self-care (01) ==
LOC: EC 23:52 → 1SOBS 11-28 03:47 → 3SCARD 11-28 15:09
PROVIDERS: ADMIT Internal Medicine; ATTEND Internal Medicine
DX: I25.110 Atherosclerotic heart disease of native coronary artery with unstable angina pectoris (principal); I10 Essential (primary) hypertension; E78.5 Hyperlipidemia, unspecified; G47.33 Obstructive sleep apnea (adult) (pediatric); R00.1 Bradycardia, unspecified; K51.90 Ulcerative colitis, unspecified, without complications; I27.20 Pulmonary hypertension, unspecified; I08.3 Combined rheumatic disorders of mitral, aortic and tricuspid valves; I45.10 Unspecified right bundle-branch block; Z95.5 Presence of coronary angioplasty implant and graft; I25.2 Old myocardial infarction; Z87.891 Personal history of nicotine dependence; Z79.82 Long term (current) use of aspirin; Z79.899 Other long term (current) drug therapy; Z88.3 Allergy status to other anti-infective agents; Z88.5 Allergy status to narcotic agent; Z88.2 Allergy status to sulfonamides; Z91.19 Patient's noncompliance with other medical treatment and regimen; Z79.02 Long term (current) use of antithrombotics/antiplatelets
CPT/HCPCS: 99285; 36415; 93005; 93306; 93571; 93458; 85347; 85379; 83880; 80061; 80053 ×2; 83735; 84484; 85025 ×2; 85610; 85730; 71046; 70450; G0378 ×2; C9600; C1887; C1894; C1725; C1769; C1874; J2001; J3010; J1644; J0153; Q9967 ×2; J2250

== ENCOUNTER 2019-05-11 08:51 | Day surgery (SDC) | payer MEDICARE ==
[2019-05-09 11:10] VITALS: BMI 27.8
[~2019-05-11 08:51] MED LIST changes: -LIDOCAINE 1% 20 ML VIAL (10MG/ML) FOR IV START INTRADERMA PRN
[2019-05-11 09:27] VITALS: RESP 16; TEMP 96.7
[2019-05-11] MEDS ORDERED: LIDOCAINE 1% 20 ML VIAL (10MG/ML) FOR IV START INTRADERMA ONE (09:32)
[2019-05-11] MEDS ORDERED: PROPOFOL 10 MG/ML 20 ML VIAL IV ONE (09:54)
--- NOTE | 2019-05-11 10:48 | P.PCN ---
Date of Procedure: 05/11/19 Description of Procedure: BRIEF HISTORY: Patient is a 69-year-old male with a history of left-sided colitis since age of 26. Previously when initially diagnosed he was treated with prednisone therapy since been maintained on Lialda 1.2 g twice a day with no reports of abdominal pain, blood per rectum or change in bowels. Last colonoscopy was significant for numerous pseudopolyps in the sigmoid colon without evidence of active disease. PROCEDURE PERFORMED: Colonoscopy with biopsy and polypectomy. PREOPERATIVE DIAGNOSIS: Colitis, less colonoscopy at the age of 66. ESTIMATED BLOOD LOSS: Minimal. IV sedation per Anesthesia. PROCEDURE: After informed consent was obtained, the patient, was brought into the endoscopy unit. IV sedation was administered by Anesthesia under continuous monitoring. Digital rectal examination was normal. Initially the Olympus CF-190 flexible video colonoscope was then inserted in the rectum, gradually advanced into the cecum without any difficulty. Careful examination was performed as the scope was gradually being withdrawn. Ileocecal valve and the appendiceal orifice were visualized and appeared normal. Prep was excellent. Mucosa of the cecum, ascending colon, transverse colon, descending colon, sigmoid colon, and rectum was visualized and significant for numerous small pseudopolyps starting at 40 cm from the anal verge to the rectosigmoid junction with no pseudopolyps noted in the rectum. Multiple small diverticula noted in the left colon. Diminutive 2 mm transverse colon polyp removed with cold forceps.. Retroflexion was performed in the rectum and no lesions were seen. The patient tolerated the procedure well. IMPRESSION: 1. Numerous pseudopolyps in the distal sigmoid with no evidence of active colitis. 2. Mild diverticulosis of the left colon. 3. Diminutive transverse colon polyp removed with cold forceps. 4. Random biopsies taken of the terminal ileum and every 10 cm starting from 80 cm from the anal verge to 10 cm from the anal verge. RECOMMENDATIONS: Findings of this examination were discussed with the patient and his . Continue current medical regimen. Await pathology from biopsies and polypectomy. Follow-up in gastroenterology clinic as previously scheduled. Recommend repeat colonoscopy in 2 years.
[2019-05-11 10:56] VITALS: BP 122/77; PULSE 53
== END 2019-05-11 11:26 | disposition home or self-care (01) ==
LOC: ORWHC2ENDO 08:51
PROVIDERS: ATTEND Internal Medicine
DX: Z09 Encounter for follow-up examination after completed treatment for conditions other than malignant neoplasm (principal); D12.3 Benign neoplasm of transverse colon; K57.30 Diverticulosis of large intestine without perforation or abscess without bleeding; K52.89 Other specified noninfective gastroenteritis and colitis; I10 Essential (primary) hypertension; E78.5 Hyperlipidemia, unspecified; I25.10 Atherosclerotic heart disease of native coronary artery without angina pectoris; G47.33 Obstructive sleep apnea (adult) (pediatric); L28.0 Lichen simplex chronicus; Z88.2 Allergy status to sulfonamides; Z88.8 Allergy status to other drugs, medicaments and biological substances; Z88.5 Allergy status to narcotic agent; Z79.82 Long term (current) use of aspirin; Z79.899 Other long term (current) drug therapy; Z88.1 Allergy status to other antibiotic agents; Z86.010 Personal history of colon polyps
CPT/HCPCS: 88305; 45380; J2704

== ENCOUNTER → 2020-04-17 | Outpatient (CLI) | payer MEDICARE ==
[2020-04-17 10:41] LABS: HCT 49.4 % (39.0-53.0); MCH 30.6 pg (25.0-35.0); MCHC 32.4 g/dL (31.0-37.0); MCV 94.6 fL (80.0-100.0); Mean Platelet Volume 7.6; Platelet Count 211 k/uL (150-450); RBC 5.23 m/uL (4.30-5.90); RDW 12.9 % (11.5-15.5); WBC 5.1 k/uL (3.8-10.6)
[2020-04-17 10:43] LABS: Appearance,Urine Clear (Clear); Bilirubin,Urine Negative (Negative); Blood,Urine Negative (Negative); Color,Urine Yellow; Glucose,Urine (UA) 3+ (Negative); Ketones,Urine Negative (Negative); Leukocyte Esterase,Urine Negative (Negative); Nitrite,Urine Negative (Negative); Protein,Urine Negative (Negative); Specific Gravity,Urine 1.017 (1.001-1.035); Urobilinogen,Urine <2.0 mg/dL (<2.0)
[2020-04-17 10:56] LABS: Albumin 4.5 g/dL (3.5-5.0); Calcium 9.4 mg/dL (8.4-10.2); Potassium 4.4 mmol/L (3.5-5.1); Total Bilirubin 0.9 mg/dL (0.2-1.3)
[2020-04-17 11:36] LABS: Partial Thromboplastin Time 24.9 sec (22.0-30.0)
== END | disposition home or self-care (01) ==
LOC: LABPAT 09:52
PROVIDERS: ATTEND Orthopaedic Surgery Sports Medicine
DX: Z01.818 Encounter for other preprocedural examination (principal); Z01.812 Encounter for preprocedural laboratory examination; Z79.01 Long term (current) use of anticoagulants
CPT/HCPCS: 36415; 80053; 81003; 85027; 85610; 85730; 87070; 93005

== ENCOUNTER 2020-05-02 07:32 | Day surgery (SDC) | payer MEDICARE ==
[2020-04-29 09:15] VITALS: BMI 29.2
[~2020-05-02 07:32] MED LIST changes: +ACETAMINOPHEN TAB 500 MG TAB PO PRN; +GABAPENTIN 300 MG CAP PO PRN; -LACTATED RINGERS 1,000 ML IV SCH; +MELOXICAM 7.5 MG TAB PO PRN; +MIDAZOLAM 2 MG/2 ML VIAL IV PRN; +ONDANSETRON 4 MG/2 ML VIAL IVP PRN; +TRANEXAMIC ACID 1,000 MG in SODIUM CHLORIDE 0.9% 100 ML IVPB PRN; +fentaNYL (PF) 50 MCG/ML 2 ML AMP IV PRN
[2020-05-02] MEDS ORDERED: DEXAMETHASONE SOD PHOSPHATE 4 MG/ML 1 ML VIAL IVP ONE (08:27)
[2020-05-02 08:30] LABS: Glucose,Whole Blood 132 mg/dL (75-99)
[2020-05-02] MEDS: LACTATED RINGERS 1,000 ML IV SCH ×3 (08:34→22:40)
--- NOTE | 2020-05-02 09:10 | P.ANPRN ---
Procedure Note - Anesthesia - Nerve Block Performed Right Adductor Canal Time Out Performed: Yes (08:39) Date of Procedure: 05/02/20 Procedure Start Time: :39 Procedure Stop Time: 08:54 Location of Patient: PreOp Indication: Acute Post-Operative Pain, Requested by Surgeon (Dr Tracy) Sedation Type: Sedate with meaningful contact maintained Preparation: Sterile Prep, Sterile Dressing Position: Supine Catheter: Indwelling Needle Types: Pajunk Needle Gauge: 21 Ultrasound used to visualize needle placement: Yes Ultrasound used to observe medication spread: Yes Injectate: 0.5% Ropivacaine (see comment for volume) (20cc) Blood Aspirated: No Pain Paresthesia on Injection Noted: No Resistance on Injection: Normal Image Stored and Saved: Yes Events: Uneventful and Well Tolerated
[2020-05-02] MEDS ORDERED: ROPIVACAINE 0.2%-NS ON-Q PUMP 1,090 MG, EMPTY PAIN BALL 1 EACH MISCELLANE PRN (09:15)
[2020-05-02] MEDS ORDERED: SODIUM CHLORIDE 0.9% 100 ML BAG ONE (09:19)
[2020-05-02] MEDS ORDERED: GLYCOPYRROLATE 0.2 MG/ML 2 ML VIAL ONE (09:19)
[2020-05-02] MEDS ORDERED: PROPOFOL 10 MG/ML 20 ML VIAL IV ONE (09:19)
[2020-05-02] MEDS ORDERED: PHENYLEPHRINE-0.9% NACL SYG 1 MG/10 ML SYRINGE ONE (09:19)
[2020-05-02] MEDS ORDERED: fentaNYL (PF) 50 MCG/ML 2 ML AMP ONE (09:19)
[2020-05-02] MEDS: ROPIVACAINE 246.25 MG, EPINEPHrine 0.5 MG, KETOROLAC 30 MG, cloNIDine HCL/PF 80 MCG, WA... MISCELLANE PRN ×15 (09:19→10:19)
[2020-05-02] MEDS ORDERED: MIDAZOLAM 2 MG/2 ML VIAL ONE (09:19)
[2020-05-02] MEDS ORDERED: TRANEXAMIC ACID 1,000 MG/10 ML VIAL ONE (09:19)
[2020-05-02] MEDS ORDERED: ceFAZolin 3,000 MG in SODIUM CHLORIDE 0.9% IRRIGATIO 3,000 ML IRRIGATION ONE (09:21)
[2020-05-02] MEDS ORDERED: LACTATED RINGERS 1,000 ML IV ONE (10:14)
[2020-05-02] MEDS ORDERED: MAGNESIUM HYDROXIDE 2,400 MG/10 ML CUP PO PRN (11:11)
[2020-05-02] MEDS ORDERED: ONDANSETRON 4 MG/2 ML VIAL IVP PRN (11:11)
[2020-05-02] MEDS ORDERED: ACETAMINOPHEN TAB 325 MG TAB PO PRN (11:11)
[2020-05-02] MEDS ORDERED: bisacodyL 10 MG SUPP RECTAL PRN (11:11)
[2020-05-02] MEDS ORDERED: Acetaminophen-Codeine 300-30mg TAB PO PRN (11:11)
[2020-05-02] MEDS ORDERED: HYDROmorphone 0.5 MG/0.5 ML SYRINGE IVP PRN ×2 (11:11)
[2020-05-02] MEDS ORDERED: NA PHOS,M-B/NA PHOS,DI-BA 133 ML ENEMA RECTAL PRN (11:11)
[2020-05-02] MEDS ORDERED: diazePAM 5 MG TAB PO PRN (11:11)
[2020-05-02] MEDS ORDERED: NALOXONE 0.4 MG/ML 1 ML VIAL IV PRN (11:11)
[2020-05-02] MEDS ORDERED: traMADol 50 MG TAB PO PRN (11:11)
[2020-05-02] MEDS ORDERED: HYDROmorphone 0.2 MG/1 ML SYRINGE IVP PRN (11:11)
[2020-05-02] MEDS ORDERED: hydrOXYzine pamoate 25 MG CAP PO PRN (11:11)
[2020-05-02] MEDS ORDERED: TEMAZEPAM 15 MG CAP PO PRN (11:11)
--- NOTE | 2020-05-02 12:29 | OP ---
OPERATIVE REPORT DATE OF PROCEDURE: 05/02/2020 SURGEON: Rocky Tracy MD. MANAGER MAC: Miki SCOTT. PREOPERATIVE DIAGNOSIS: Right knee osteoarthrosis. POSTOPERATIVE DIAGNOSIS: Right knee osteoarthrosis. OPERATION: Right total knee arthroplasty. ANESTHESIA: Spinal with sedation. ESTIMATED BLOOD LOSS: 100 mL. TOURNIQUET: Tourniquet time was 47 minutes at 250 mmHg. COMPLICATIONS: None apparent. DRAINS: None. DISPOSITION: Postanesthesia care unit. INDICATIONS: Ghanshyam is a 70-year-old male with longstanding history of right knee pain. History and physical examination are consistent with advanced right knee osteoarthrosis. He has been through significant nonoperative management up to this point. Further treatment options were discussed and he has decided to go for the right total knee arthroplasty. The risks of procedure were discussed with him in detail. These risks include, but are not limited to risk of infection, nerve damage, bleeding, pain, and a small risk of deep vein thrombosis which could lead to fatal pulmonary embolism. There is also risk of loosening of the implant which could require revision operation. The patient understands these risks. All of all of his questions were answered to his satisfaction. Appropriate informed consent was obtained. DESCRIPTION OF PROCEDURE: The patient identified in preoperative holding area. Surgical sites marked by both the patient and myself. He was given 2 g of Ancef IV for prophylactic purposes. He was then transferred to the operative suite, where he was placed supine on the operative table. Spinal anesthetic was then administered, dosed per the anesthesia department without apparent complication. Examination under anesthesia was then performed. The patient was 2-3 degrees shy of full extension. He had 100 degrees of flexion. The medial collateral ligament, lateral collateral ligament, posterior cruciate ligaments were stable. Tourniquet was then placed high on the right upper thigh, well-padded in preparation for surgery. The patient's right lower extremity than prepped and draped in usual sterile fashion. Standard surgical pause undertaken to ensure that we were operating on the correct site and that appropriate preoperative antibiotics were given. All staff were in agreement, we proceeded. The outlines of the patella marked surgical pen. A planned 12 cm vertical incision centered over the patella was marked surgical pen over the ligament. Leg was then exsanguinated with an Esmarch dressing. The knee was then flexed and tourniquet was inflated to 250 mmHg. The total tourniquet time for the procedure was 47 minutes. Incision was then made with a 10 blade scalpel. Dissection was carried down sharply overlying fascia. Great care was taken to minimize the skin flaps. The knee was then exposed using standard medial parapatellar approach. A small cuff of quadriceps tendon was then left for suturing. He was in a bit of varus preoperatively. A standard medial release was then made to the suture. The superficial medial collateral ligament was dissected off the bone around the posterior aspect of the proximal tibia. The medial meniscus was then excised as well. The lateral meniscus was also released anteriorly. The leg was then externally rotated. The patella was everted. The knee was flexed. The retractors were then placed to protect the collateral ligaments. I then proceeded to remove the infrapatellar fat pad. This was excised sharply tangentially with fibers of the patellar tendon. I then proceeded to remove peripheral osteophytes. This was done with a rongeur. I then proceeded with distal femoral resection. He did have near full extension. A planned 9 mm resection was then done. The femoral canal was entered and the entered met in the midline of the femur approximately, a 10 mm anterior to the origin of the posterior cruciate ligament. The aranza was then advanced on the center of the femur and placed intramedullary. Based on the preoperative radiographs, the angle between the anatomic and mechanical axis of the femur was approximately 4-5 degrees with valgus angle this femoral cutting guide was then set at 4 degrees for the right knee. This femoral cutting guide was then advanced over the intramedullary aranza. This was seated firmly against the femur. I then as mentioned planned to take 9 mm off the distal femur. The cutting block was then secured onto the femur with pins. The jig was then removed. The distal femoral cut was made through the slot of the block. The pins were then removed. The distal cutting block was removed. The accuracy of this femoral cuts was checked with 2 flat bars. I then proceeded with femoral sizing. Posterior referencing sizing guide was held firmly against the resected distal surface of the femur. The posterior condyles were resting on the posterior plane of the guide. The sizing stylus was then placed onto the anterior femur. The size was measured as a size 10. I then assessed for femoral rotation. The plan for 3 degrees external rotation. Three degrees external rotation was placed onto the jig. These holes were then marked. I then confirmed the rotation by 3 separate methods. This is done using epicondylar axis as well as Whitesides line and posterior referencing. Deemed that the external rotation was proper. Then went forward placing femoral cutting block. This was placed over the previously placed pin holes. The Jorge wing was then placed onto the anterior slots to ensure that we would not notch the anterior femur with the anterior femoral cut. I then proceeded with the anterior femoral cut. This was flush with the anterior cortex of the femur. The posterior cuts were then made followed by the anterior chamfer cut, then the posterior chamfer cut. The cutting block was then removed. Throughout the resection, the collateral ligaments were protected with retractors. I then placed a trial size 10 femur. It fit very nice medial. The fit was slightly wide mediolateral but the narrow fit very nicely and it fit flush with the distal end of the femur. The drill holes were then made. I then proceeded with the tibial cut. I planned for cruciate retaining knee. The guide was placed in separate varus valgus then for slope. The height was set for approximate 2 mm resection from the medial tibial plateau which was the lower side. I was happy with the alignment amount of resection. The cutting block was then pinned to the proximal tibia. The alignment aranza was removed. The proximal tibia was resected with a reciprocating saw. Again this was done with retractors protecting the collateral ligaments as well as the posterior cruciate ligament. I then proceeded to evaluate the flexion extension gaps. A 10 mm block was then placed. The flexion-extension gaps were equal. I then proceeded with resection of the posterior osteophytes. This is that she had after he had very minimal posterior osteophytes. This was done using a curved osteotome. This resected the posterior osteophytes and posterior capsule stripping was done off the posterior aspect of the femur at this time. The osteophytes were then removed. I then proceed to resection of the patella. The thickness of the patella was measured using the caliper. The thickness was 22 mm. The thickness of the anticipated patellar dome was taken into account. Resection was then performed and confirmed to be equal in 4 quadrants using a caliper. Approximately 14 mm of bone remained after resection. A 32 x 8.5 standard patellar trial was then placed. The holes were drilled. The trial was then placed. I then proceed with sizing tibial plate. A size F tibial plate fit very nicely. I then placed the trial femur the tibial tray and patellar button. A 10 mm trial tibial insert was also placed. The components fit very nicely. He had full extension and flexion. The extension and flexion gaps were equal and stable to varus and valgus stress. The patella tracked appropriately. Tibial tray rotation was then marked with a Bovie. This external rotated properly. I then proceed with tibial preparation. First, the femoral holes removed femoral component. The tibial tray was then set for proper external rotation as well as mediolateral placement onto the tibia. Then pinned into place. Then proceed with punching the keel. I then decided to proceed with cementing of all components. The knee was thoroughly irrigated with sterile saline solution via pulse lavage. The lateral geniculate artery was identified and cauterized. All blood was removed from the bone of the tibia femur and patella with pulse lavage. Then proceeded with cementing. Packs of antibiotic bone cement prepared on the back table by the surgical territory manager. I then proceed with cemented the tibia first. The cement was impacted in the keel as well as deeply seated into the bone. A second coat of cement was then placed. The tibia was then impacted into place. Excess cement was removed with Washington's and Joker's. I then proceed with cementing of the femoral component. The femoral component was also cemented using tacked standard technique. Excess cement was removed. A 10 mm trial insert was then placed into the knee. It was brought into full extension with a constant axial load placed until the cement had hardened. The patellar component was then cemented. This held firmly with a compressive device until the cement had dried. When the cement had dried, the knee was taken out of extension. All excess all excess cement was removed from around the prosthesis. I then trialed with a 10 mm insert. Flexion extension gaps were appropriate. The knee was stable. It came in full extension. I decided to go for the 10 mm cross-linked cruciate-retaining tibial insert. Polyethylene was then placed onto the tibial tray and locked into place. The knee was then reduced. The knee was again further irrigated with sterile saline solution with antibiotic added. The tourniquet was then deflated. Total tourniquet time for the procedure was 47 minutes at 250 mmHg. Final components were Minna Persona size 10 narrow cruciate-retaining femoral component, size F tibial tray, a 10 mm medial congruent cruciate-retaining polyethylene insert, and a 32 x 8.5 mm patella. I then proceeded with closure. Again, the knee was thoroughly irrigated. The quadriceps tendon. The medial retinaculum reapproximated with #2 Ethibond suture. The extensor mechanism was then closed with a running #2 Quill suture. Subcutaneous tissues were closed with 2-0 Vicryl interrupted suture. The skin was closed with a running 3-0 Quill suture. Dermabond was applied to the incision. Sterile compressive dressing was then applied. All sponge and needle counts were deemed correct prior to closure. The patient tolerated the procedure without apparent complication. He was transferred to recovery room in stable condition. MMODL / IJN: [id number] /
--- NOTE | 2020-05-02 13:07 | XR ---
EXAMINATION TYPE: XR knee limited RT DATE OF EXAM: 05/02/2020 COMPARISON: NONE HISTORY: 70-year-old male postoperative evaluation TECHNIQUE: 2 views FINDINGS: Images demonstrate placement of right total knee arthroplasty. Both distal femoral and proximal tibia l components of the prosthesis are well seated without periprosthetic fracture. Alignment grossly megan tomic. Scattered soft tissue air as well as intra-articular air compatible with recent operation. IMPRESSION: Uncomplicated postoperative appearance right total knee arthroplasty.
[2020-05-02] MEDS ORDERED: NITROGLYCERIN SL TABS 0.4 MG TAB SUBLINGUAL PRN (18:40)
[2020-05-02] MEDS: ASPIRIN 81 MG PO SCH (19:55)
[2020-05-02] MEDS ORDERED: SENNOSIDES-DOCUSATE SODIUM 1 EACH TAB PO SCH (21:00)
[2020-05-02] MEDS ORDERED: CLOBETASOL PROP 0.05% CR 15GM TOPICAL PRN (21:00)
[2020-05-02] MEDS: Acetaminophen-Codeine 300-30mg TAB PO PRN (21:40)
[2020-05-02] MEDS: BALSALAZIDE DISODIUM 750 MG CAPSULE PO SCH (21:41)
[2020-05-03] MEDS: Acetaminophen-Codeine 300-30mg TAB PO PRN ×4 (01:05→12:07)
--- NOTE | 2020-05-03 06:45 | P.PN ---
Progress Note - Text Progress Note Date: 05/03/20 Patient was seen at bedside at 615 AM. Patient is postop day 1 from right total knee replacement with adductor canal catheter placed for pain . Ropivacaine 0.2% infusion running at 8 ml per hour. VAS score is 3/10. Patient denies side effects. Lower extremity sensation and motor function is intact. Patient has ambulated. Dressing clean dry and intact over catheter site
[2020-05-03 07:17] VITALS: BP 136/81; PULSE 54; RESP 18; TEMP 97.6
[2020-05-03 07:46] LABS: Basophils % (A) 0 %; Eosinophils % (A) 0 %; HCT 40.7 % (39.0-53.0); HGB 14.2 gm/dL (13.0-17.5); Lymphocytes % (A) 8 %; MCH 32.6 pg (25.0-35.0); MCHC 34.9 g/dL (31.0-37.0); MCV 93.4 fL (80.0-100.0); Mean Platelet Volume 7.5; Monocytes # (A) 0.6 k/uL (0-1.0); Monocytes % (A) 5 %; Neutrophils # (A) 10.6 k/uL (1.3-7.7); Neutrophils % (A) 86 %; Platelet Count 191 k/uL (150-450); RBC 4.36 m/uL (4.30-5.90); RDW 12.4 % (11.5-15.5); WBC 12.4 k/uL (3.8-10.6)
[2020-05-03] MEDS: LACTATED RINGERS 1,000 ML IV SCH ×2 (08:05)
[2020-05-03] MEDS: BALSALAZIDE DISODIUM 750 MG CAPSULE PO SCH (08:08)
[2020-05-03] MEDS: ASPIRIN 81 MG PO SCH (08:08)
[2020-05-03] MEDS ORDERED: NON FORMULARY DRUG (Red Yeast Rice [Red Yeast Rice] 600 MG Tablet) PO SCH (09:00)
[2020-05-03] MEDS ORDERED: NON FORMULARY DRUG (Flaxseed Oil [Flaxseed Oil] 1,000 MG Capsule) PO SCH (09:00)
[2020-05-03] MEDS ORDERED: NON FORMULARY DRUG (Omega-3 Fatty Acids [Omega-3] 1,000 MG Capsule) PO SCH (09:00)
[2020-05-03] MEDS ORDERED: lisinopriL 20 MG TAB PO SCH (09:00)
[2020-05-03] MEDS ORDERED: NON FORMULARY DRUG (Ubidecarenone [Co Q-10] 100 MG Capsule) PO SCH (09:00)
[2020-05-03] MEDS ORDERED: MULTIVITAMINS, THERA 1 EACH TAB PO SCH (12:00)
--- NOTE | 2020-05-03 14:39 | P.CONS ---
History of Present Illness - Reason for Consult Consult date: 05/03/20 - History of Present Illness Ghanshyam Villegas, is a 70-year-old male who was admitted to [facility] by Dr. Rocky Tracy for advanced right knee osteoarthritis and underwent right total knee arthroplasty, on 05/02/2020, medical consultation was requested for management while hospitalized. Patient has a known history of hypertension, hyperlipidemia, history of diverticulosis, history of obstructive sleep apnea and history of osteoarthritis. On review of systems patient is alert and oriented 3 in no apparent distress there is no fever or chills no headache or dizziness no chest pain no shortness of breath no cough no nausea or vomiting no abdominal pain no diarrhea no blood in the stools no burning with urination no frequency or urgency and no hematuria. Patient has pain in the right knee post surgery and is well- controlled with Tylenol 3. Past Medical History Past Medical History: Coronary Artery Disease (CAD), Hyperlipidemia, Hypertension, Myocardial Infarction (MO), Osteoarthritis (OA), Skin Disorder, Sleep Apnea/CPAP/BIPAP Additional Past Medical History / Comment(s): DOES NOT USE HIS C-PAP, ULCERATIVE COLITIS, MO X2, Lichenoid Dermatitis. Last Myocardial Infarction Date:: 11/2018 History of Any Multi-Drug Resistant Organisms: None Reported Past Surgical History: Cardiac Ablation, Heart Catheterization With Stent, Orthopedic Surgery Additional Past Surgical History / Comment(s): REMOVAL OF BONES SPURS LEFT SHOULDER, bilateral shoulder rotator cuff repair, right knee arthroscopy X2, 2 cardiac stents. Past Anesthesia/Blood Transfusion Reactions: Previous Problems w/ Anesthesia, Motion Sickness Additional Past Anesthesia/Blood Transfusion Reaction / Comm: PROBLEMS WITH BP DROPPING WITH ANESTHESIA. ACCORDING TO RECOVERY ROOM STAFF, HE TRIED TO GET OFF CART AND PULL OUT IV. Date of Last Stent Placement:: 11/2018 Past Psychological History: No Psychological Hx Reported Smoking Status: Former smoker Past Alcohol Use History: None Reported Additional Past Alcohol Use History / Comment(s): USED TO SMOKE A PIPE- last used . Past Drug Use History: None Reported - Past Family History Mother Family Medical History: No Reported History Medications and Allergies Home Medications Medication Instructions Recorded Confirmed Type lisinopriL [Zestril] 20 mg PO QAM 08/03/14 04/29/20 History Aspirin 81 mg PO DAILY chew 11/29/18 04/29/20 Rx Nitroglycerin Sl Tabs [Nitrostat] 0.4 mg SUBLINGUAL Q5M PRN #25 tab 11/29/18 04/29/20 Rx Clobetasol Propionate [Temovate 1 applic TOPICAL DIRECTED PRN 05/09/19 1 06/29/19 History 0.05% Cream] Flaxseed Oil 1,000 mg PO DAILY 05/09/19 04/29/20 History Mesalamine [Lialda] 1.2 gm PO BID 05/09/19 04/29/20 History Benton-3 Fatty Acids [Benton-3] 1,000 mg PO DAILY 05/09/19 04/29/20 History Red Yeast Rice 1,200 mg PO DAILY 05/09/19 04/29/20 History Ubidecarenone [Co Q-10] 200 mg PO DAILY 05/09/19 04/29/20 History Acetaminophen-Codeine 300-30mg 1 - 2 tab PO Q4-6H PRN #42 tablet 05/03/20 Rx [Tylenol w/codeine #3] Aspirin [Adult Low Dose Aspirin EC] 81 mg PO BID #60 tablet.dr 05/03/20 Rx Docusate [Colace] 100 mg PO BID #60 capsule 05/03/20 Rx traMADol HCL [Ultram] 50 mg PO Q4HR PRN #42 tab 05/03/20 Rx Allergies Allergy/AdvReac Type Severity Reaction Status Date / Time Sulfa (Sulfonamide Allergy Unknown Rash/Hives Verified 05/02/20 08:03 Antibiotics) atorvastatin [From Lipitor] Allergy severe Verified 05/02/20 08:03 joint pain doxycycline Allergy Unknown Verified 05/02/20 08:03 fluvastatin Allergy could not Verified 05/02/20 08:03 walk hydrocodone [From [place]] Allergy Hallucinati Verified 05/02/20 08:03 ons [id number] Reductase Allergy severe Verified 05/02/20 08:03 Inhibitor joint pain Physical Exam Vitals: Vital Signs Temp Pulse Pulse Resp BP Pulse Ox 05/03/20 07:00 97.6 F 54 L 18 136/81 96 05/03/20 02:22 97.7 F 60 16 143/58 95 05/02/20 19:55 16 05/02/20 18:51 97.6 F 55 L 16 154/85 95 05/02/20 16:52 97.8 F 69 18 155/90 96 05/02/20 15:45 58 L 16 143/72 95 05/02/20 14:45 77 16 123/62 96 Intake and Output 05/02/20 05/03/20 05/03/20 22:59 06:59 14:59 Intake Total 475 Balance 475 Intake: IV 475 Other: Voiding Method Toilet # Voids 1 3 Weight 95.2 kg In general patient is alert and oriented 3 in no apparent distress HEENT head normocephalic and atraumatic Neck is supple no JVD no goiter no lymphadenopathy Chest exam reveals a few scattered crackles no wheezing Cardiac exam reveals regular heart sounds no murmurs Abdomen is soft nontender no organomegaly with normal bowel sounds Extremity exam reveals no edema no cyanosis or clubbing Neurological examination reveals no gross focal deficit Results CBC & Chem 7: 05/03/20 07:26 Labs: Abnormal Lab Results - Last 24 Hours (Table) 05/03/20 Range/Units 07:26 WBC 12.4 H (3.8-10.6) k/uL Neutrophils # 10.6 H (1.3-7.7) k/uL Assessment and Plan Plan: Status post right total knee arthroplasty postoperative day #1 Underlying history of hypertension Underlying history of hyperlipidemia Underlying history of obstructive sleep apnea Underlying history of diverticulosis At this time patient is stable he has been receiving his home medications Plan is for discharge to home today Patient is stable from medical standpoint for discharge
--- NOTE | 2020-05-03 16:17 | P.DS ---
Providers Expected date of discharge: 05/03/20 Attending physician: Rocky Tracy Consults: 05/02/20 11:11 Consult Physician Routine Consulting Provider: Junior Bruno Consult Reason/Comments: post op medical management Do you want consulting provider notified?: Yes Primary care physician: Junior Bruno - Discharge Diagnosis(es) (1) Status post total right knee replacement Patient was admitted to the OR on 05/02/2020 to undergo a right total knee arthroplasty. He had failed conservative measures as an outpatient and desired to proceed with elective surgery after given informed consent. He underwent the above procedure which he tolerated well without complication. Postoperative hospital course has remained without complication. On day of discharge he is afebrile, vital signs stable, labs within acceptable ranges, tolerating by mouth meds and diet, voiding without difficulty, positive flatus, denies abdominal pain or calf pain, pain is controlled on oral pain medication and has no new complaints. Wound is benign, neurovascular status is intact, calf is soft and nontender, abdomen soft and nontender. Review of systems is negative for numbness, tingling, fever, chills, chest pain, shortness of breath, nausea, vomiting, dizziness, headaches, slurred speech or other. Status: Acute Priority: Medium Procedures: Right TKA Patient Condition at Discharge: Good Plan - Discharge Summary Discharge Rx Participant: Yes New Discharge Prescriptions: New Aspirin [Adult Low Dose Aspirin EC] 81 mg PO BID #60 tablet. Docusate [Colace] 100 mg PO BID #60 capsule traMADol HCL [Ultram] 50 mg PO Q4HR PRN #42 tab PRN Reason: Pain Acetaminophen-Codeine 300-30mg [Tylenol w/codeine #3] 1 - 2 tab PO Q4-6H PRN #42 tablet PRN Reason: Pain No Action lisinopriL [Zestril] 20 mg PO QAM Nitroglycerin Sl Tabs [Nitrostat] 0.4 mg SUBLINGUAL Q5M PRN #25 tab PRN Reason: Chest Pain Aspirin 81 mg PO DAILY chew Ubidecarenone [Co Q-10] 200 mg PO DAILY Antler-3 Fatty Acids [Antler-3] 1,000 mg PO DAILY Flaxseed Oil 1,000 mg PO DAILY Mesalamine [Lialda] 1.2 gm PO BID Red Yeast Rice 1,200 mg PO DAILY Clobetasol Propionate [Temovate 0.05% Cream] 1 applic TOPICAL DIRECTED PRN PRN Reason: Dermatitis Discharge Medication List lisinopriL [Zestril] 20 mg PO QAM 08/03/14 [History] Aspirin 81 mg PO DAILY chew 11/29/18 [Rx] Nitroglycerin Sl Tabs [Nitrostat] 0.4 mg SUBLINGUAL Q5M PRN #25 tab 11/29/18 [Rx] Clobetasol Propionate [Temovate 0.05% Cream] 1 applic TOPICAL DIRECTED PRN 05/09/19 [History] Flaxseed Oil 1,000 mg PO DAILY 05/09/19 [History] Mesalamine [Lialda] 1.2 gm PO BID 05/09/19 [History] Antler-3 Fatty Acids [Antler-3] 1,000 mg PO DAILY 05/09/19 [History] Red Yeast Rice 1,200 mg PO DAILY 05/09/19 [History] Ubidecarenone [Co Q-10] 200 mg PO DAILY 05/09/19 [History] Acetaminophen-Codeine 300-30mg [Tylenol w/codeine #3] 1 - 2 tab PO Q4-6H PRN #42 tablet 05/03/20 [Rx] Aspirin [Adult Low Dose Aspirin EC] 81 mg PO BID #60 tablet. 05/03/20 [Rx] Docusate [Colace] 100 mg PO BID #60 capsule 05/03/20 [Rx] traMADol HCL [Ultram] 50 mg PO Q4HR PRN #42 tab 05/03/20 [Rx] Follow up Appointment(s)/Referral(s): Junior Bruno MD [Primary Care Provider] - 05/08/20 10:30 am Rocky Tracy MD [STAFF PHYSICIAN] - 05/13/20 1:05 pm Patient Instructions/Handouts: Knee Replacement (DC) Activity/Diet/Wound Care/Special Instructions: Keep wound clean and dry Take meds as directed Follow-up with Dr. Tracy in office Weight bear as tolerated May shower in 3 days if no bleeding Discharge Disposition: HOME WITH HOME HEALTH SERVICES
== END 2020-05-03 15:40 | disposition home health service (06) ==
LOC: OR 07:32 → 4SSUR 11:03 → OR 05-03 15:40
PROVIDERS: ATTEND Orthopaedic Surgery Sports Medicine
DX: M17.11 Unilateral primary osteoarthritis, right knee (principal); I10 Essential (primary) hypertension; E78.5 Hyperlipidemia, unspecified; I25.10 Atherosclerotic heart disease of native coronary artery without angina pectoris; I25.2 Old myocardial infarction; G47.33 Obstructive sleep apnea (adult) (pediatric); L28.0 Lichen simplex chronicus; Z97.3 Presence of spectacles and contact lenses; Z79.82 Long term (current) use of aspirin; Z79.899 Other long term (current) drug therapy; Z88.0 Allergy status to penicillin; Z88.2 Allergy status to sulfonamides; Z88.8 Allergy status to other drugs, medicaments and biological substances; Z88.5 Allergy status to narcotic agent; Z95.5 Presence of coronary angioplasty implant and graft; Z87.891 Personal history of nicotine dependence; Z87.19 Personal history of other diseases of the digestive system
CPT/HCPCS: 97110; 97161; 64448; 76942; 85025; 88300; 73560; 27447; C1776; C1713; J2250; J0171; J1100; J0690 ×3; J2405; J3010; J1885; J2795 ×2; J2370; J2704; J0735

== ENCOUNTER 2020-05-24 00:40 | Emergency (ER) | payer MEDICARE ==
[2020-05-24] MEDS ORDERED: SODIUM CHLORIDE 0.9% 1,000 ML IV STA (00:45)
[2020-05-24 01:35] LABS: Basophils # (A) 0.1 k/uL (0-0.2); Basophils % (A) 2 %; Eosinophils # (A) 0.2 k/uL (0-0.7); Eosinophils % (A) 3 %; HCT 39.9 % (39.0-53.0); HGB 13.7 gm/dL (13.0-17.5); Lymphocytes # (A) 1.1 k/uL (1.0-4.8); Lymphocytes % (A) 20 %; MCH 31.5 pg (25.0-35.0); MCHC 34.3 g/dL (31.0-37.0); MCV 92.1 fL (80.0-100.0); Mean Platelet Volume 6.8; Monocytes # (A) 0.5 k/uL (0-1.0); Monocytes % (A) 8 %; Neutrophils # (A) 3.8 k/uL (1.3-7.7); Neutrophils % (A) 66 %; Platelet Count 292 k/uL (150-450); RBC 4.34 m/uL (4.30-5.90); RDW 12.4 % (11.5-15.5); WBC 5.7 k/uL (3.8-10.6)
[2020-05-24 01:43] LABS: INR 0.9 (<1.2); Partial Thromboplastin Time 24.3 sec (22.0-30.0); Prothrombin Time 9.9 sec (9.0-12.0)
--- NOTE | 2020-05-24 01:48 | XR ---
EXAM: XR Chest, 1 View CLINICAL HISTORY: ITS.REASON XR Reason: Suspected COVID-19 pneumonia TECHNIQUE: Frontal view of the chest. COMPARISON: 11/28/18. FINDINGS: Lungs: Mildly prominent lung markings. No consolidation. Pleural space: No significant pleural effusion or pneumothorax. Heart: Stable. Mediastinum: Stable. Bones/joints: No acute fracture. IMPRESSION: Mildly prominent lung markings. Developing infiltrate not entirely excluded in the appropriate clinical setting.
[2020-05-24 01:57] LABS: C Reactive Protein 13.7 mg/L (<10.0); Calcium 9.4 mg/dL (8.4-10.2); Magnesium 2.1 mg/dL (1.6-2.3); Potassium 4.4 mmol/L (3.5-5.1); Total Bilirubin 0.7 mg/dL (0.2-1.3); Total Protein 6.6 g/dL (6.3-8.2)
--- NOTE | 2020-05-24 02:35 | ED ---
SOB HPI - General Chief Complaint: Shortness of Breath Stated Complaint: RACHELLE Time Seen by Provider: 05/24/20 00:44 Source: EMS, RN notes reviewed, old records reviewed Mode of arrival: EMS Limitations: no limitations - History of Present Illness Initial Comments: This is a 70-year-old male DF for evaluation patient resents with shortness of breath will try to sleep tonight. Patient does have recent knee surgery with right knee replacement and some mild pain with no significant swelling no erythema. Begun saline down are worse with lying down and he does became very anxious and said the hospital to get checked out is otherwise without fever or chest pain. MD Complaint: shortness of breath, cough -: hour(s) Severity: moderate Severity scale (1-10): 5 Consistency: constant Improves With: nothing, rest Worsens With: lying flat (With sleeping) Context: recent URI Associated Symptoms: denies other symptoms Treatments Prior to Arrival: none - Related Data Home Medications Medication Instructions Recorded Confirmed lisinopriL [Zestril] 20 mg PO QAM 08/03/14 04/29/20 Clobetasol Propionate [Temovate 1 applic TOPICAL DIRECTED PRN 05/09/19 04/29/20 0.05% Cream] Flaxseed Oil 1,000 mg PO DAILY 05/09/19 04/29/20 Mesalamine [Lialda] 1.2 gm PO BID 05/09/19 04/29/20 [place]-3 Fatty Acids [[place]-3] 1,000 mg PO DAILY 05/09/19 04/29/20 Red Yeast Rice 1,200 mg PO DAILY 05/09/19 04/29/20 Ubidecarenone [Co Q-10] 200 mg PO DAILY 05/09/19 04/29/20 Previous Rx's Medication Instructions Recorded Aspirin 81 mg PO DAILY chew 11/29/18 Nitroglycerin Sl Tabs [Nitrostat] 0.4 mg SUBLINGUAL Q5M PRN #25 tab 11/29/18 Acetaminophen-Codeine 300-30mg 1 - 2 tab PO Q4-6H PRN #42 tablet 05/03/20 [Tylenol w/codeine #3] Aspirin [Adult Low Dose Aspirin EC] 81 mg PO BID #60 tablet. 05/03/20 Docusate [Colace] 100 mg PO BID #60 capsule 05/03/20 traMADol HCL [Ultram] 50 mg PO Q4HR PRN #42 tab 05/03/20 Allergies Allergy/AdvReac Type Severity Reaction Status Date / Time Sulfa (Sulfonamide Allergy Unknown Rash/Hives Verified 05/02/20 08:03 Antibiotics) atorvastatin [From Lipitor] Allergy severe Verified 05/02/20 08:03 joint pain doxycycline Allergy Unknown Verified 05/02/20 08:03 fluvastatin Allergy could not Verified 05/02/20 08:03 walk hydrocodone [From [place]] Allergy Hallucinati Verified 05/02/20 08:03 ons Fehpsbu-Fir-Kmo Reductase Allergy severe Verified 05/02/20 08:03 Inhibitor joint pain Review of Systems ROS Statement: Those systems with pertinent positive or pertinent negative responses have been documented in the HPI. ROS Other: All systems not noted in ROS Statement are negative. Past Medical History Past Medical History: Sleep Apnea/CPAP/BIPAP Additional Past Medical History / Comment(s): DOES NOT USE HIS C-PAP, ULCERATIVE COLITIS. [place] x 2, lichenoid dermatitis, Last Myocardial Infarction Date:: 11/2018 History of Any Multi-Drug Resistant Organisms: None Reported Past Surgical History: Cardiac Ablation, Heart Catheterization With Stent, Orthopedic Surgery Additional Past Surgical History / Comment(s): REMOVAL BONES SPURS/LEFT SHOULDER. omar shoulder rotator cuff, rt knee arthroscopy x 2, two cardiac stents Past Anesthesia/Blood Transfusion Reactions: Previous Problems w/ Anesthesia, Motion Sickness Additional Past Anesthesia/Blood Transfusion Reaction / Comment(s): PROBLEMS WITH BP DROPPING WITH ANESTHESIA. ACCORDING TO RECOVERY ROOM STAFF, HE TRIED TO GET OFF CART AND PULL OUT IV. Date of Last Stent Placement:: 11/2018 Past Psychological History: No Psychological Hx Reported Smoking Status: Never smoker Past Alcohol Use History: None Reported Past Drug Use History: None Reported - Past Family History Mother Family Medical History: No Reported History General Exam Limitations: no limitations General appearance: alert, in no apparent distress Head exam: Present: atraumatic, normocephalic, normal inspection Eye exam: Present: normal appearance, PERRL, EOMI. Absent: scleral icterus, conjunctival injection, periorbital swelling ENT exam: Present: normal exam, mucous membranes moist Neck exam: Present: normal inspection. Absent: tenderness, meningismus, lymphad enopathy Respiratory exam: Present: normal lung sounds bilaterally. Absent: respiratory distress, wheezes, rales, rhonchi, stridor Cardiovascular Exam: Present: regular rate, normal rhythm, normal heart sounds. Absent: systolic murmur, diastolic murmur, rubs, gallop, clicks GI/Abdominal exam: Present: soft, normal bowel sounds. Absent: distended, tenderness, guarding, rebound, rigid Extremities exam: Present: normal inspection, full ROM, normal capillary refill. Absent: tenderness, pedal edema, joint swelling, calf tenderness Back exam: Present: normal inspection Neurological exam: Present: alert, oriented X3, CN II-XII intact Psychiatric exam: Present: normal affect, normal mood Skin exam: Present: warm, dry, intact, normal color. Absent: rash Course Vital Signs 05/24/20 05/24/20 05/24/20 00:41 02:29 03:10 Temperature 98.3 F Pulse Rate 64 65 64 Respiratory 19 20 19 Rate Blood Pressure 145/81 137/77 148/80 O2 Sat by Pulse 100 99 99 Oximetry 05/24/20 03:49 Temperature 97.8 F Pulse Rate 67 Respiratory 19 Rate Blood Pressure 150/92 O2 Sat by Pulse 99 Oximetry - Reevaluation(s) Reevaluation #1: Medical record is reviewed Patient is informed of results here in the ER and questions are answered A she feels good with reassurance here in the ER Patient spoken with, feeling better, symptoms remained improved Patient is okay for discharge Medical Decision Making - Medical Decision Making 70 male to the ER for evaluation patient Dese for evaluation of shortness of breath occurred will try to go to sleep. He doesn't is taking Nexium dose of pain medications tonight. Otherwise no complaints testing is negative here in the ER patient can be discharged home - Lab Data Result diagrams: 05/24/20 01:28 05/24/20 01:28 Lab Results 05/24/20 05/24/20 05/24/20 Range/Units 01:28 01:28 01:28 WBC 5.7 (3.8-10.6) k/uL RBC 4.34 (4.30-5.90) m/uL Hgb 13.7 (13.0-17.5) gm/dL Hct 39.9 (39.0-53.0) % MCV 92.1 (80.0-100.0) fL MCH 31.5 (25.0-35.0) pg MCHC 34.3 (31.0-37.0) g/dL RDW 12.4 (11.5-15.5) % Plt Count 292 (150-450) k/uL MPV 6.8 Neutrophils % 66 % Lymphocytes % 20 % Monocytes % 8 % Eosinophils % 3 % Basophils % 2 % Neutrophils # 3.8 (1.3-7.7) k/uL Lymphocytes # 1.1 (1.0-4.8) k/uL Monocytes # 0.5 (0-1.0) k/uL Eosinophils # 0.2 (0-0.7) k/uL Basophils # 0.1 (0-0.2) k/uL PT 9.9 (9.0-12.0) sec INR 0.9 (<1.2) APTT 24.3 (22.0-30.0) sec Sodium 135 L (137-145) mmol/L Potassium 4.4 (3.5-5.1) mmol/L Chloride 105 (98-107) mmol/L Carbon Dioxide 24 (22-30) mmol/L Anion Gap 6 mmol/L BUN 20 (9-20) mg/dL Creatinine 1.03 (0.66-1.25) mg/dL Est GFR (CKD-EPI)AfAm 86 (>60 ml/min/1.73 sqM) Est GFR (CKD-EPI)NonAf 74 (>60 ml/min/1.73 sqM) Glucose 120 H (74-99) mg/dL Plasma Lactic Acid Antwon (0.7-2.0) mmol/L Calcium 9.4 (8.4-10.2) mg/dL Magnesium 2.1 (1.6-2.3) mg/dL Total Bilirubin 0.7 (0.2-1.3) mg/dL AST 23 (17-59) U/L ALT 25 (4-49) U/L Alkaline Phosphatase 80 (38-126) U/L Lactate Dehydrogenase 403 (313-618) U/L C-Reactive Protein 13.7 H (<10.0) mg/L Total Protein 6.6 (6.3-8.2) g/dL Albumin 4.0 (3.5-5.0) g/dL Coronavirus (PCR) (Not Detectd) 05/24/20 05/24/20 Range/Units 01:28 02:10 WBC (3.8-10.6) k/uL RBC (4.30-5.90) m/uL Hgb (13.0-17.5) gm/dL Hct (39.0-53.0) % MCV (80.0-100.0) fL MCH (25.0-35.0) pg MCHC (31.0-37.0) g/dL RDW (11.5-15.5) % Plt Count (150-450) k/uL MPV Neutrophils % % Lymphocytes % % Monocytes % % Eosinophils % % Basophils % % Neutrophils # (1.3-7.7) k/uL Lymphocytes # (1.0-4.8) k/uL Monocytes # (0-1.0) k/uL Eosinophils # (0-0.7) k/uL Basophils # (0-0.2) k/uL PT (9.0-12.0) sec INR (<1.2) APTT (22.0-30.0) sec Sodium (137-145) mmol/L Potassium (3.5-5.1) mmol/L Chloride (98-107) mmol/L Carbon Dioxide (22-30) mmol/L Anion Gap mmol/L BUN (9-20) mg/dL Creatinine (0.66-1.25) mg/dL Est GFR (CKD-EPI)AfAm (>60 ml/min/1.73 sqM) Est GFR (CKD-EPI)NonAf (>60 ml/min/1.73 sqM) Glucose (74-99) mg/dL Plasma Lactic Acid Antwon 1.2 (0.7-2.0) mmol/L Calcium (8.4-10.2) mg/dL Magnesium (1.6-2.3) mg/dL Total Bilirubin (0.2-1.3) mg/dL AST (17-59) U/L ALT (4-49) U/L Alkaline Phosphatase (38-126) U/L Lactate Dehydrogenase (313-618) U/L C-Reactive Protein (<10.0) mg/L Total Protein (6.3-8.2) g/dL Albumin (3.5-5.0) g/dL Coronavirus (PCR) Not Detected (Not Detectd) - EKG Data -: EKG Interpreted by Me (EKG shows sinus rhythm 64, OR 138 QRS 88 QTc 402) - Radiology Data Radiology results: report reviewed (CT chest is negative for acute disease), image reviewed Disposition Clinical Impression: Medication reaction Disposition: HOME SELF-CARE Condition: Good Instructions (If sedation given, give patient instructions): Opioid Safety (ED) Is patient prescribed a controlled substance at d/c from ED?: No Referrals: Junior Bruno MD [Primary Care Provider] - 1-2 days
--- NOTE | 2020-05-24 02:59 | CT ---
EXAM: CT Angiography Chest With Intravenous Contrast CLINICAL HISTORY: SOB. recent knee surgery ITS.REASON CT Reason: PE TECHNIQUE: Axial computed tomographic angiography images of the chest with intravenous contrast. CTDI is 15.07 mGy and DLP is 422 mGy-cm. This CT exam was performed using one or more of the following dose reduction techniques: automated exposure control, adjustment of the mA and/or kV according to patient size, and/or use of iterative reconstruction technique. MIP reconstructed images were created and reviewed. COMPARISON: No relevant prior studies available. FINDINGS: Artifacts: Motion artifact. Pulmonary arteries: No large central PE. Small focus of low attenuation in the right lower lobe inseparable from a pulmonary arterial branch, favor pulmonary nodule although the possibility of tiny PE cannot be completely excluded. Aorta: No aortic aneurysm or dissection. Lungs: Mild peribronchial thickening and probable atelectatic changes. Multiple small pulmonary nodules. Pleural space: No significant effusion. No pneumothorax. Heart: Coronary artery calcifications. Bones/joints: No acute fracture. Soft tissues: Unremarkable as visualized. Lymph nodes: Multiple dense mediastinal and hilar lymph nodes. Liver: Possible mild fatty liver. IMPRESSION: 1. No large central PE. 2. Mild peribronchial thickening and probable atelectatic changes. Multiple small pulmonary nodules. Consider followup imaging to ensure stability/resolution. 3. Additional findings, as above.
[2020-05-24 03:24] VITALS: RESP 19
[2020-05-24 04:07] VITALS: BP 150/92; PULSE 67; TEMP 97.8
== END 2020-05-24 03:49 | disposition home or self-care (01) ==
LOC: EC 00:40
DX: R06.02 Shortness of breath (principal); M25.561 Pain in right knee; T47.1X5A Adverse effect of other antacids and anti-gastric-secretion drugs, initial encounter; Z20.828 Contact with and (suspected) exposure to other viral communicable diseases; Z88.2 Allergy status to sulfonamides; Z88.5 Allergy status to narcotic agent; Z88.8 Allergy status to other drugs, medicaments and biological substances; Z96.651 Presence of right artificial knee joint
CPT/HCPCS: 36415; 93005; 80053; 83605; 83615; 83735; 85025; 85610; 85730; 86140; 87635; 71045; 71275; 99285; 96360; 96361; Q9967

== ENCOUNTER → 2024-12-05 | Day surgery (SDC) | payer MEDICARE ==
[~2024-12-05] MED LIST changes: -ACETAMINOPHEN TAB 500 MG TAB PO PRN; -GABAPENTIN 300 MG CAP PO PRN; -MELOXICAM 7.5 MG TAB PO PRN; -MIDAZOLAM 2 MG/2 ML VIAL IV PRN; -ONDANSETRON 4 MG/2 ML VIAL IVP PRN; +PROPOFOL 10 MG/ML 20 ML VIAL IV ONE; -TRANEXAMIC ACID 1,000 MG in SODIUM CHLORIDE 0.9% 100 ML IVPB PRN; -fentaNYL (PF) 50 MCG/ML 2 ML AMP IV PRN
[2024-12-05 08:11] VITALS: RESP 16; TEMP 96.4
[2024-12-05 08:19] LABS: Glucose,Whole Blood 165 mg/dL (70-110)
[2024-12-05] MEDS: LACTATED RINGERS 1,000 ML IV SCH (08:20)
[2024-12-05] MEDS: IV FLUID CONTINUATION 1,000 ML IV ONE (08:21)
--- NOTE | 2024-12-05 09:14 | P.PCN ---
Date of Procedure: 12/05/24 Procedure(s) Performed: BRIEF HISTORY: Patient is a 74-year-old pleasant white male scheduled for an elective colonoscopy as a part of screening for longstanding history of ulcerative colitis diagnosed in his early 20s. He is in clinical remission. PROCEDURE PERFORMED: Colonoscopy with random biopsies. PREOPERATIVE DIAGNOSIS: Screening for longstanding history of ulcerative colitis IV sedation per Anesthesia. PROCEDURE: After informed consent was obtained, the patient, was brought into the endoscopy unit. IV sedation was administered by Anesthesia under continuous monitoring. Digital rectal examination was normal. Initially the Olympus CF-160 flexible video colonoscope was then inserted in the rectum, gradually advanced into the cecum without any difficulty. Careful examination was performed as the scope was gradually being withdrawn. Ileocecal valve and the appendiceal orifice were visualized and appeared normal. Prep was excellent. Mucosa of the cecum, ascending colon, transverse colon, descending colon appeared normal. There were several scattered pseudopolyps noted in the sigmoid colon and in the proximal rectum which were biopsied. Rest of the, sigmoid colon, and rectum appeared normal. Random biopsies were done from cecum to rectum at every 10 cm intervals to rule out dysplasia. Retroflexion was performed in the rectum and no lesions were seen. The patient tolerated the procedure well. IMPRESSION: Scattered pseudopolyps No evidence of active colitis or colorectal neoplasia RECOMMENDATIONS: Findings of this examination were discussed with the patient as well as his family that he was advised to follow-up the biopsy results. The biopsy does not reveal any evidence of dysplasia, he can have repeat colonoscopy in 2 years.
[2024-12-05 09:54] LABS: Glucose,Whole Blood 145 mg/dL (70-110)
[2024-12-05 10:03] VITALS: PULSE 63
[2024-12-05 10:16] VITALS: BP 120/63
== END ==
LOC: ORWHC2ENDO 07:47
PROVIDERS: ATTEND Internal Medicine Gastroenterology
DX: Z12.11 Encounter for screening for malignant neoplasm of colon (principal); K63.5 Polyp of colon; K62.1 Rectal polyp; I48.91 Unspecified atrial fibrillation; I10 Essential (primary) hypertension; I25.10 Atherosclerotic heart disease of native coronary artery without angina pectoris; I25.2 Old myocardial infarction; Z95.5 Presence of coronary angioplasty implant and graft; E11.9 Type 2 diabetes mellitus without complications; E78.5 Hyperlipidemia, unspecified; G47.33 Obstructive sleep apnea (adult) (pediatric); Z79.899 Other long term (current) drug therapy; Z87.19 Personal history of other diseases of the digestive system; Z88.1 Allergy status to other antibiotic agents; Z88.5 Allergy status to narcotic agent; Z88.2 Allergy status to sulfonamides; Z88.8 Allergy status to other drugs, medicaments and biological substances
CPT/HCPCS: 88305; 45380; J2704